=== PATIENT | male | born 1960 | race American Indian/Alaskan Native ===

== ENCOUNTER 2016-10-21 11:20 | Outpatient (CLI) | payer MEDICAID | END 2016-10-21 11:21 | disposition home or self-care (01) | LOC: VAS 11:20 | PROVIDERS: ATTEND Internal Medicine Nephrology | DX: M79.661 Pain in right lower leg (principal) | CPT/HCPCS: 93970 ==

== ENCOUNTER 2017-10-24 01:44 | Emergency (ER) | payer MEDICAID ==
[2017-10-24 02:50] LABS: Basophils # (Auto) 0.1 K/mm3 (0.0-0.1); Basophils % (Auto) 0.6 % (0.0-1.8); Eosinophils # (Auto) 0.5 K/mm3 (0.0-0.4); Eosinophils % (Auto) 6.1 % (0.0-4.3); Hematocrit 38.9 % (35.5-45.6); Hemoglobin 12.7 gm/dl (11.8-15.2); Lymphocytes # (Auto) 1.1 K/mm3 (1.2-5.4); Lymphocytes % (Auto) 12.1 % (13.4-35.0); Mean Corpuscular HGB Conc 33 % (32-34); Mean Corpuscular Hemoglobin 29 pg (28-32); Mean Corpuscular Volume 90 fl (84-94); Monocytes # (Auto) 0.5 K/mm3 (0.0-0.8); Monocytes % (Auto) 5.2 % (0.0-7.3); Platelet Count 134 K/mm3 (140-440); Red Blood Count 4.34 M/mm3 (3.65-5.03); Red Cell Distribution Width 17.2 % (13.2-15.2)
[2017-10-24 03:10] LABS: Calcium 8.8 mg/dL (8.4-10.2)
--- NOTE | 2017-10-24 03:47 | XRay Report ---
FINAL REPORT EXAM: XR CHEST 1V AP HISTORY: Shortness of breath. TECHNIQUE: Two frontal portable radiographs of the chest were obtained. No prior studies are available for comparison. FINDINGS: The heart is mildly enlarged. There is mild prominence of the central pulmonary vasculature. There are bilateral perihilar opacities, with additional patchy infiltrate at the right lung base. These findings may be on the basis of mild pulmonary edema, versus pneumonia. There is no pleural effusion or pneumothorax. No significant osseous abnormalities are identified. IMPRESSION: Mild prominence of the central pulmonary vasculature, with bilateral perihilar and right basilar infiltrates. These findings may be on the basis of mild pulmonary edema versus pneumonia. Clinical correlation is recommended.
[2017-10-24] MEDS ORDERED: LASIX IV ONE (04:04)
[2017-10-24] MEDS ORDERED: NITRO-BID 2% TP ONE (04:05)
[2017-10-24] MEDS ORDERED: NITROSTAT SL ONE (04:05)
--- NOTE | 2017-10-24 04:14 | Emergency Department Report ---
ED General Adult HPI - General Chief complaint: Dyspnea/Respdistress Stated complaint: RICO Time Seen by Provider: 10/24/17 03:44 Source: EMS Mode of arrival: Stretcher Limitations: Other - History of Present Illness Initial comments: History of esrd was 6am hd THIS MORNING SHORT OF BREATH DENIES CHEST PAIN DENIES FEVER DENIES OTHER COMPLAINTS DENIES ANY CALF PAIN OR SWELLING IS REFERRED EVALUATION OF PULMONARY EDEMA, pt is in need of his hd today, no other c/o, no fever -: Gradual, This morning, unknown Associated Symptoms: denies other symptoms, shortness of breath. denies: confusion, chest pain, cough, diaphoresis, fever/chills, headaches, loss of appetite, malaise, nausea/vomiting, rash, seizure, syncope, weakness - Related Data Previous Rx's Medication Instructions Recorded Last Taken Type B Complex 11/Folic/C/Biot/Zinc 1 each PO DAILY #30 tablet 12/24/16 Unknown Rx [Dialyvite with Zinc Tablet] Carvedilol [Coreg] 3.125 mg PO BID #60 tablet 12/24/16 Unknown Rx Losartan [Cozaar] 50 mg PO QDAY #30 tablet 12/24/16 Unknown Rx Pantoprazole [Protonix] 40 mg PO BID #60 tablet 12/24/16 Unknown Rx Allergies Allergy/AdvReac Type Severity Reaction Status Date / Time No Known Allergies Allergy Verified 09/09/13 08:50 ED Review of Systems ROS: Stated complaint: RICO Other details as noted in HPI Comment: All other systems reviewed and negative Constitutional: denies: diaphoresis, fever, malaise Eyes: denies: eye discharge, vision change ENT: denies: dental pain, hearing loss, epistaxis Respiratory: shortness of breath, SOB with exertion, SOB at rest. denies: stridor Cardiovascular: denies: chest pain, palpitations, dyspnea on exertion, orthopnea , syncope, paroxysmal nocturnal dyspnea Gastrointestinal: denies: abdominal pain, nausea, vomiting, diarrhea, constipation, hematemesis, melena, hematochezia Musculoskeletal: denies: joint swelling, arthralgia Neurological: denies: numbness, paresthesias, confusion ED Past Medical Hx - Past Medical History Hx Hypertension: Yes Hx Heart Attack/AMI: No Hx Congestive Heart Failure: No Hx Diabetes: No Hx Renal Disease: Yes (dialysis) Hx Asthma: No Hx COPD: No - Surgical History Hx Coronary Stent: Yes - Social History Smoking Status: Unknown if ever smoked - Medications Home Medications: Home Medications Medication Instructions Recorded Confirmed Last Taken Type B Complex 11/Folic/C/Biot/Zinc 1 each PO DAILY #30 tablet 12/24/16 Unknown Rx [Dialyvite with Zinc Tablet] Carvedilol [Coreg] 3.125 mg PO BID #60 tablet 12/24/16 Unknown Rx Losartan [Cozaar] 50 mg PO QDAY #30 tablet 12/24/16 Unknown Rx Pantoprazole [Protonix] 40 mg PO BID #60 tablet 12/24/16 Unknown Rx ED Physical Exam - General Limitations: Other General appearance: alert, in no apparent distress, anxious - Head Head exam: Present: atraumatic, normocephalic - Eye Eye exam: Present: normal appearance, PERRL, EOMI - ENT ENT exam: Present: normal exam, normal orophraynx - Neck Neck exam: Present: normal inspection. Absent: tenderness, meningismus - Respiratory Respiratory exam: Present: wheezes, rales, rhonchi. Absent: decreased breath sounds - Cardiovascular Cardiovascular Exam: Present: regular rate, normal rhythm - GI/Abdominal GI/Abdominal exam: Present: soft. Absent: tenderness, guarding, rebound, rigid , mass, pulsatile mass - Extremities Exam Extremities exam: Present: normal capillary refill, pedal edema. Absent: calf tenderness - Neurological Exam Neurological exam: Present: alert, oriented X3, CN II-XII intact. Absent: motor sensory deficit ED Course Vital Signs 10/24/17 10/24/17 10/24/17 01:48 02:00 02:15 Pulse Rate 74 74 68 Respiratory 20 22 22 Rate Blood Pressure 178/111 169/103 O2 Sat by Pulse 100 100 100 Oximetry 10/24/17 10/24/17 10/24/17 02:30 02:45 03:01 Pulse Rate 70 67 67 Respiratory 20 21 Rate Blood Pressure 170/108 159/102 O2 Sat by Pulse 100 100 Oximetry ED Medical Decision Making - Lab Data Result diagrams: 10/24/17 02:43 10/24/17 02:43 - Radiology Data Radiology results: report reviewed - Medical Decision Making Patient given nitroglycerin and Lasix he is stable for transfer [facility] he is stable vs, case was discussed with the on-call for Dr. Reich the renal doctor agrees with management. Patient has no other complaints symptoms seem to be related to an emergent need for dialysis C is therefore transferred to the dialysis center Critical care attestation.: If time is entered above; I have spent that time in minutes in the direct care of this critically ill patient, excluding procedure time. ED Disposition Clinical Impression: ESRD (end stage renal disease) on dialysis, Pulmonary edema Disposition: TO HOME OR SELFCARE Is pt being admited?: No Condition: Stable Instructions: Pulmonary Edema (ED) Additional Instructions: The dialysis unit now call 911 if new alarming symptoms Referrals: KRISTOFER ELLIS MD [Primary Care Provider] - 3-5 Days Time of Disposition: 04:24
[2017-10-24 06:57] VITALS: BP 164/104
== END 2017-10-24 06:57 | disposition home or self-care (01) ==
LOC: ED 01:44
DX: J81.1 Chronic pulmonary edema (principal); I12.0 Hypertensive chronic kidney disease with stage 5 chronic kidney disease or end stage renal disease; N18.6 End stage renal disease; Z99.2 Dependence on renal dialysis
CPT/HCPCS: 36415; 71045; 80048; 85025; 93005; 93010; 96374; 99284; J1940

== ENCOUNTER 2017-12-14 07:57 | Day surgery (SDC) | payer MEDICAID ==
[~2017-12-14 07:57] MED LIST: NACL 0.9% 1000 ML 1,000 ML IV SCH
[2017-12-14] MEDS ORDERED: WATER FOR IRRIG STERILE IR ONE (08:23)
[2017-12-14] MEDS ORDERED: XYLOCAINE MPF 2% ONE (08:30)
[2017-12-14] MEDS ORDERED: DIPRIVAN 10 MG/ML IV ONE (08:41)
--- NOTE | 2017-12-14 08:42 | Anesthesia Day of Surgery ---
Anesthesia Day of Surgery - Day of Surgery Patient Examined: Yes Patient H&P Reviewed: Yes Patient is NPO: Yes
--- NOTE | 2017-12-14 08:42 | Anesthesia Consultation ---
Anesthesia Consult and Med Hx Date of service: 12/14/17 - Airway Anesthetic Teeth Evaluation: Poor ROM Head & Neck: Adequate Mental/Hyoid Distance: Adequate Mallampati Class: Class II Intubation Access Assessment: Probably Good - Pre-Operative Health Status ASA Pre-Surgery Classification: ASA3 Proposed Anesthetic Plan: MAC - Pulmonary Hx Smoking: Yes Hx Asthma: No SOB: Yes COPD: No Hx Pneumonia: No Hx Sleep Apnea: No - Cardiovascular System Hx Hypertension: Yes Hx Coronary Artery Disease: Yes Hx Heart Attack/AMI: No Hx Percutaneous Transluminal Coronary Angioplasty (PTCA): No Hx Peripheral Vascular Disease: Yes - Central Nervous System CVA: Yes (2012, rt leg weakness) Hx Psychiatric Problems: No - Gastrointestinal Hx Ulcer: Yes (GASTRIC ULCER) - Endocrine Hx Renal Disease: Yes Hx End Stage Renal Disease: Yes ([place] ) Hx Hypothyroidism: No - Hematic Hx Anemia: Yes (acute GI bleed) - Other Systems Hx Alcohol Use: No Hx Substance Use: Yes (CIGARETTES/MARIJUANA) Hx Cancer: No
--- NOTE | 2017-12-14 09:07 | Short Stay Summary ---
Short Stay Documentation Date of service: 12/14/17 Narrative H&P: The patient reports for f/u EGD for a history of a gastric ulcer with a massive bleed a year ago. He never had f/u endoscopy. - History Past Medical History: ESRD, hypertension Past Surgical History: Other (AV shunt for dialysis) Social history: no significant social history, no smoking, no alcohol abuse - Allergies and Medications Current Medications: Allergies No Known Allergies Allergy (Verified 09/09/13 08:50) Home Medications Medication Instructions Recorded Confirmed Last Taken Type B Complex 11/Folic/C/Biot/Zinc 1 each PO DAILY #30 tablet 12/24/16 Unknown Rx [Dialyvite with Zinc Tablet] Carvedilol [Coreg] 3.125 mg PO BID #60 tablet 12/24/16 Unknown Rx Losartan [Cozaar] 50 mg PO QDAY #30 tablet 12/24/16 Unknown Rx Pantoprazole [Protonix] 40 mg PO BID #60 tablet 12/24/16 Unknown Rx Aspirin 81 mg PO DAILY 12/14/17 12/14/17 12/14/17 History Megavite Hoskins Years Caplet 1 tab PO DAILY 12/14/17 12/14/17 12/13/17 History Active Medications Sodium Chloride (Nacl 0.9% 1000 Ml) 1,000 mls @ 50 mls/hr IV DIRECT DARIANA Last Admin: 12/14/17 08:40 Dose: 50 mls/hr - Physical exam General appearance: no acute distress, well-nourished Integumentary: no rash, no growths, no abnormal pigmentation HEENT: Atraumatic, PERRLA, EOMI, Mucous membr. moist/pink Lungs: Clear to auscultation, Normal air movement Breasts: deferred Gastrointestinal: normoactive bowel sounds, no tenderness, no distended, no masses, no organomegaly, no hepatomegaly, no splenomegaly, no obese Male Genitourinary: deferred Rectal Exam: deferred Extremities: no ischemia, pulses intact, pulses symmetrical, No edema, Full ROM Neurological: Normal gait, Normal speech, Strength at 5/5 X4 ext, Normal tone, Sensation intact, Cranial nerves 3-12 NL - Brief post op/procedure progress note Date of procedure: 12/14/17 Findings: see dictated report Estimated blood loss: none Pathology: none Condition: stable - Disposition Condition at discharge: Good Disposition: DC-01 TO HOME OR SELFCARE - Discharge Diagnoses (1) Gastric ulcer Status: Acute Short Stay Discharge Plan Follow up with: MARY CARMEN CESPEDES MD [Primary Care Provider] - 7 Days
--- NOTE | 2017-12-14 09:10 | Operative Report ---
Operative Report Operative Report: Date of procedure: 12/14/2017 Procedure: Esophagogastroduodenoscopy Preprocedure diagnosis: History of gastric ulcer with a massive bleed. Follow- up study to exclude malignancy. Post procedure diagnosis: Normal study Endoscopist: Dr. Angeles Anesthesia: Monitored anesthesia care per anesthesia department Medications: Propofol per anesthesia Estimated blood loss: 0 After careful discussion of the nature and purpose of the procedure as well as details the technique risks benefits and alternatives consent was obtained. The patient was placed in the left lateral decubitus position and medicated per anesthesia. The tip of the Tenrox EQ 570 video scope was passed per orum under direct vision into the esophagus and advanced into the stomach and descending duodenum. The descending duodenum the duodenal bulb and pylorus were symmetrical and normal. The scope was withdrawn into the stomach and the stomach then gently insufflated with air. The antrum was normal. The stomach was further insufflated and the scope was then retroflexed and partially withdrawn. The cardia, fundus, and body of the stomach were within normal limits and easily distensible.The scope was then withdrawn in the forward position. The esophagogastric junction was at 40 cm. The esophageal body was normal throughout. The procedure was was well tolerated and the patient was observed in recovery. Impressions: Normal upper digestive tract with healing of the ulcer demonstrated. Plan: Follow-up when necessary. Electronically signed: Antonio Angeles MD
[2017-12-14 09:23] VITALS: BP 162/94
== END 2017-12-14 07:58 | disposition home or self-care (01) ==
LOC: GIO 07:57
PROVIDERS: ATTEND Internal Medicine Gastroenterology
DX: K25.9 Gastric ulcer, unspecified as acute or chronic, without hemorrhage or perforation (principal); I12.0 Hypertensive chronic kidney disease with stage 5 chronic kidney disease or end stage renal disease; N18.6 End stage renal disease; I25.10 Atherosclerotic heart disease of native coronary artery without angina pectoris; I73.9 Peripheral vascular disease, unspecified; I69.944 Monoplegia of lower limb following unspecified cerebrovascular disease affecting left non-dominant side; F17.210 Nicotine dependence, cigarettes, uncomplicated; Z99.2 Dependence on renal dialysis; Z79.82 Long term (current) use of aspirin; Z79.899 Other long term (current) drug therapy
CPT/HCPCS: 43235; J2704; J7030

== ENCOUNTER 2018-07-16 05:03 | Inpatient (IN) | payer MEDICAID ==
[2018-07-16] MEDS ORDERED: LASIX IV ONE (05:27)
[2018-07-16] MEDS ORDERED: DUONEB *Not for PRN Use IH ONE ×2 (05:27→06:48)
--- NOTE | 2018-07-16 05:28 | Emergency Department Report ---
Blank Doc - Documentation Documentation: Patient is a 58-year-old gentleman who is presenting with shortness of breath and chest discomfort. Patient has a history of end-stage renal disease and receives last dialysis yesterday. Patient is not due for dialysis for another day. Patient
[2018-07-16] MEDS ORDERED: LASIX ONE (05:31)
[2018-07-16 05:36] LABS: Basophils % (Auto) 0.4 % (0.0-1.8); Eosinophils # (Auto) 0.6 K/mm3 (0.0-0.4); Eosinophils % (Auto) 6.6 % (0.0-4.3); Hematocrit 35.9 % (35.5-45.6); Hemoglobin 11.6 gm/dl (11.8-15.2); Lymphocytes % (Auto) 9.9 % (13.4-35.0); Mean Corpuscular HGB Conc 32 % (32-34); Mean Corpuscular Volume 94 fl (84-94); Monocytes # (Auto) 0.7 K/mm3 (0.0-0.8); Monocytes % (Auto) 6.9 % (0.0-7.3); Platelet Count 154 K/mm3 (140-440); Red Cell Distribution Width 16.5 % (13.2-15.2)
[2018-07-16 05:51] LABS: Calcium 9.4 mg/dL (8.4-10.2)
--- NOTE | 2018-07-16 05:55 | XRay Report ---
FINAL REPORT PROCEDURE: XR CHEST 1V AP TECHNIQUE: Chest radiograph anteroposterior view. CPT 77567 HISTORY: shortness of breath COMPARISON: 10/24/2017 FINDINGS: Heart: Heart size is slightly enlarged but unchanged. Mediastinum/Vessels: Normal. Lungs/Pleural space: There slight patchy infiltrates in the hilar regions. Is mild infiltrate left lo wer lung. No effusion or pneumothorax. Bony thorax: No acute osseous abnormality. Life support devices: None. IMPRESSION: Mild hilar in left lower lung infiltrates. Mild stable cardiomegaly..
[2018-07-16 06:08] LABS: Chol/HDL Ratio 1.74 %
[2018-07-16] MEDS ORDERED: NITRO-BID 2% TP ONE (06:28)
--- NOTE | 2018-07-16 06:31 | Emergency Department Report ---
ED Shortness of Breath HPI - General Chief Complaint: Chest Pain Stated Complaint: CHEST PAIN/RICO Time Seen by Provider: 07/16/18 05:25 Source: EMS Mode of arrival: Stretcher Limitations: No Limitations - History of Present Illness Initial Comments: 58-year-old man compliant with his dialysis states that he's been short of breath since yesterday. Although the triage note states chest pain the patient cannot describe any chest pain to me. He does seem to have ample [place] language ability. He states he's been short of breath only. He denies hemop tysis. He was found to be hypertensive on arrival. It is likely he has long- standing cardiomyopathy. MD Complaint: shortness of breath, chest pain (triage note states chest pain. However when I asked the patient all he can describe to me his shortness of breath) -: days(s) Known History Of: other (end-stage renal on dialysis) Context: other Associated Symptoms: denies other symptoms - Related Data Home Medications Medication Instructions Recorded Confirmed Last Taken Aspirin 81 mg PO DAILY 12/14/17 12/14/17 12/14/17 Megavite Hoskins Years Caplet 1 tab PO DAILY 12/14/17 12/14/17 12/13/17 Previous Rx's Medication Instructions Recorded Last Taken Type B Complex 11/Folic/C/Biot/Zinc 1 each PO DAILY #30 tablet 12/24/16 Unknown Rx [Dialyvite with Zinc Tablet] Carvedilol [Coreg] 3.125 mg PO BID #60 tablet 12/24/16 12/13/17 Rx Losartan [Cozaar] 50 mg PO QDAY #30 tablet 12/24/16 12/13/17 Rx Pantoprazole [Protonix] 40 mg PO BID #60 tablet 12/24/16 Unknown Rx Allergies Allergy/AdvReac Type Severity Reaction Status Date / Time No Known Allergies Allergy Verified 09/09/13 08:50 ED Review of Systems ROS: Stated complaint: CHEST PAIN/RICO Other details as noted in HPI Constitutional: denies: chills, fever Eyes: denies: eye pain, eye discharge, vision change ENT: denies: ear pain, throat pain Respiratory: shortness of breath. denies: cough, wheezing Cardiovascular: as per HPI. denies: palpitations Endocrine: no symptoms reported Gastrointestinal: denies: abdominal pain, nausea, diarrhea Genitourinary: denies: urgency, dysuria Musculoskeletal: denies: back pain, joint swelling, arthralgia Skin: denies: rash, lesions Neurological: denies: headache, weakness, paresthesias Psychiatric: denies: anxiety, depression Hematological/Lymphatic: denies: easy bleeding, easy bruising ED Past Medical Hx - Past Medical History Hx Hypertension: Yes Hx CVA: Yes Hx Heart Attack/AMI: No Hx Congestive Heart Failure: No Hx Diabetes: No Hx Renal Disease: Yes Hx Asthma: No Hx COPD: No Additional medical history: Dialysis T, TH, SAT - Surgical History Hx Coronary Stent: Yes - Social History Smoking Status: Never Smoker Substance Use Type: None - Medications Home Medications: Home Medications Medication Instructions Recorded Confirmed Last Taken Type B Complex 11/Folic/C/Biot/Zinc 1 each PO DAILY #30 tablet 12/24/16 Unknown Rx [Dialyvite with Zinc Tablet] Carvedilol [Coreg] 3.125 mg PO BID #60 tablet 12/24/16 12/14/17 12/13/17 Rx Losartan [Cozaar] 50 mg PO QDAY #30 tablet 12/24/16 12/14/17 12/13/17 Rx Pantoprazole [Protonix] 40 mg PO BID #60 tablet 12/24/16 Unknown Rx Aspirin 81 mg PO DAILY 12/14/17 12/14/17 12/14/17 History Megavite Hoskins Years Caplet 1 tab PO DAILY 12/14/17 12/14/17 12/13/17 History ED Physical Exam - General Limitations: No Limitations General appearance: alert, in no apparent distress - Head Head exam: Present: atraumatic, normocephalic - Eye Eye exam: Present: normal appearance - ENT ENT exam: Present: mucous membranes moist - Neck Neck exam: Present: normal inspection. Absent: tenderness, meningismus - Respiratory Respiratory exam: Present: wheezes (end expiratory wheeze appreciated), other (normal work of breathing). Absent: respiratory distress, accessory muscle use - Cardiovascular Cardiovascular Exam: Present: regular rate, normal rhythm. Absent: systolic murmur, diastolic murmur, rubs, gallop - GI/Abdominal GI/Abdominal exam: Present: soft, normal bowel sounds - Rectal Rectal exam: Present: deferred - Extremities Exam Extremities exam: Present: normal inspection - Back Exam Back exam: Present: normal inspection - Neurological Exam Neurological exam: Present: alert, oriented X3 - Psychiatric Psychiatric exam: Present: normal affect, normal mood - Skin Skin exam: Present: warm, dry, intact, normal color. Absent: rash ED Course Vital Signs 07/16/18 07/16/18 07/16/18 05:09 05:14 05:15 Temperature 98 F Pulse Rate 82 76 78 Pulse Rate [ Anterior] Respiratory 18 22 23 Rate Respiratory Rate [Anterior] Blood Pressure 187/104 Blood Pressure 187/104 [Right] O2 Sat by Pulse 100 100 Oximetry 07/16/18 07/16/18 07/16/18 05:19 05:30 05:46 Temperature Pulse Rate 74 67 Pulse Rate [ Anterior] Respiratory 18 24 20 Rate Respiratory Rate [Anterior] Blood Pressure 189/104 189/104 Blood Pressure [Right] O2 Sat by Pulse 100 100 87 Oximetry 07/16/18 07/16/18 07/16/18 06:00 06:16 06:30 Temperature Pulse Rate 69 71 69 Pulse Rate [ Anterior] Respiratory 16 20 20 Rate Respiratory Rate [Anterior] Blood Pressure 179/112 179/112 176/113 Blood Pressure [Right] O2 Sat by Pulse 100 93 90 Oximetry 07/16/18 07/16/18 07/16/18 06:37 06:56 07:00 Temperature Pulse Rate 76 73 Pulse Rate [ 90 Anterior] Respiratory 15 Rate Respiratory 17 Rate [Anterior] Blood Pressure 176/113 173/108 Blood Pressure [Right] O2 Sat by Pulse Oximetry 07/16/18 07/16/18 07/16/18 07:30 08:00 08:30 Temperature Pulse Rate 71 70 74 Pulse Rate [ Anterior] Respiratory 19 15 17 Rate Respiratory Rate [Anterior] Blood Pressure 170/104 168/101 178/103 Blood Pressure [Right] O2 Sat by Pulse 99 100 99 Oximetry 07/16/18 07/16/18 09:00 09:30 Temperature Pulse Rate 73 89 Pulse Rate [ Anterior] Respiratory 18 23 Rate Respiratory Rate [Anterior] Blood Pressure 161/93 147/102 Blood Pressure [Right] O2 Sat by Pulse 100 99 Oximetry - Reevaluation(s) Reevaluation #1: Patient's chest x-ray showed a bit of puffiness. There is a significantly elevated BNP. I think this is probably early pulmonary edema. The EKG showed LVH and a QS in V2 and V3 consistent with old anterior infarct. There are no ischemic changes. Patient's blood pressure was treated with Nitropaste. I discussed the case with Dr. Perez who has ordered dialysis. I spoke with the hospitalist service who has admitted the patient. He did improve somewhat with a DuoNeb. He was not in any respiratory distress. 07/16/18 10:35 ED Medical Decision Making - Lab Data Result diagrams: 07/16/18 05:28 07/16/18 05:28 Laboratory Results - last 24 hr 07/16/18 07/16/18 05:28 05:28 WBC 9.6 RBC 3.80 Hgb 11.6 L Hct 35.9 MCV 94 MCH 31 MCHC 32 RDW 16.5 H Plt Count 154 Lymph % (Auto) 9.9 L Stephens % (Auto) 6.9 Eos % (Auto) 6.6 H Baso % (Auto) 0.4 Lymph # 1.0 L Stephens # 0.7 Eos # 0.6 H Baso # 0.0 Seg Neutrophils % 76.2 H Seg Neutrophils # 7.3 Sodium 144 Potassium 4.9 Chloride 103.7 Carbon Dioxide 25 Anion Gap 20 BUN 43 H Creatinine 11.4 H Estimated GFR 6 BUN/Creatinine Ratio 4 Glucose 117 H Calcium 9.4 Troponin T 0.077 H Triglycerides 40 Cholesterol 108 LDL Cholesterol Direct 42 L HDL Cholesterol 62 H Cholesterol/HDL Ratio 1.74 Laboratory Results - last 24 hr 07/16/18 07/16/18 07/16/18 05:28 05:28 06:40 WBC 9.6 RBC 3.80 Hgb 11.6 L Hct 35.9 MCV 94 MCH 31 MCHC 32 RDW 16.5 H Plt Count 154 Lymph % (Auto) 9.9 L Stephens % (Auto) 6.9 Eos % (Auto) 6.6 H Baso % (Auto) 0.4 Lymph # 1.0 L Stephens # 0.7 Eos # 0.6 H Baso # 0.0 Seg Neutrophils % 76.2 H Seg Neutrophils # 7.3 PT 14.3 INR 1.07 APTT 30.4 Sodium 144 Potassium 4.9 Chloride 103.7 Carbon Dioxide 25 Anion Gap 20 BUN 43 H Creatinine 11.4 H Estimated GFR 6 BUN/Creatinine Ratio 4 Glucose 117 H Lactic Acid Calcium 9.4 Phosphorus Total Bilirubin AST ALT Alkaline Phosphatase Total Creatine Kinase CK-MB (CK-2) CK-MB (CK-2) Rel Index Troponin T 0.077 H Total Protein Albumin Albumin/Globulin Ratio Triglycerides 40 Cholesterol 108 LDL Cholesterol Direct 42 L HDL Cholesterol 62 H Cholesterol/HDL Ratio 1.74 07/16/18 07/16/18 07/16/18 06:40 06:40 06:40 WBC RBC Hgb Hct MCV MCH MCHC RDW Plt Count Lymph % (Auto) Stephens % (Auto) Eos % (Auto) Baso % (Auto) Lymph # Stephens # Eos # Baso # Seg Neutrophils % Seg Neutrophils # PT INR APTT Sodium Potassium Chloride Carbon Dioxide Anion Gap BUN Creatinine Estimated GFR BUN/Creatinine Ratio Glucose Lactic Acid 1.30 Calcium Phosphorus 5.80 H Total Bilirubin 0.20 AST 101 H ALT 92 H Alkaline Phosphatase 95 Total Creatine Kinase 117 CK-MB (CK-2) 3.7 CK-MB (CK-2) Rel Index 3.1 Troponin T Total Protein 7.0 Albumin 4.0 Albumin/Globulin Ratio 1.3 Triglycerides Cholesterol LDL Cholesterol Direct HDL Cholesterol Cholesterol/HDL Ratio - EKG Data -: EKG Interpreted by Al EKG shows normal: sinus rhythm - EKG Data Interpretation: LVH, other (probable old anterior zone) - Radiology Data Radiology results: report reviewed Critical care attestation.: If time is entered above; I have spent that time in minutes in the direct care of this critically ill patient, excluding procedure time. ED Disposition Clinical Impression: Accelerated hypertension, End-stage renal disease needing dialysis CHF (congestive heart failure) Qualifiers: Heart failure type: biventricular Qualified Code(s): I50.82 - Biventricular heart failure Disposition: OP ADMIT IP TO THIS HOSP Is pt being admited?: Yes Does the pt Need Aspirin: Yes Condition: Stable Time of Disposition: 10:38
[2018-07-16 07:05] LABS: INR 1.07 (0.87-1.13)
[2018-07-16 07:06] LABS: Partial Thromboplastin Time 30.4 Sec. (24.2-36.6)
[2018-07-16 07:21] LABS: Creatine Kinase MB 3.7 ng/mL (0.0-4.0)
[2018-07-16 08:20] LABS: Bilirubin,Direct 0.2 mg/dL (0-0.2)
[2018-07-16] MEDS ORDERED: NACL 0.9% 100 ML IV PRN (08:23)
--- NOTE | 2018-07-16 08:26 | Consultation ---
History of Present Illness - Reason for Consult Consult date: 07/16/18 end stage renal disease Requesting physician: ROBBIE DIAL - History of Present Illness 58-year-old man compliant with his dialysis states that he's been short of breath since yesterday. Although the triage note states chest pain the patient cannot describe any chest pain to me. He does seem to have ample Montenegrin language ability. He states he's been short of breath only. He denies hemopty sis. He was found to be hypertensive on arrival. It is likely he has long- standing cardiomyopathy. he undergoes hemodialysis at [facility] on TTS schedule. patient states that he did have his dialysis treatment on Monday Past History Past Medical History: dialysis, hypertension, stroke Past Surgical History: Other (AV fistula creation) Social history: no significant social history Family history: no significant family history Medications and Allergies Allergies Allergy/AdvReac Type Severity Reaction Status Date / Time No Known Allergies Allergy Verified 09/09/13 08:50 Home Medications Medication Instructions Recorded Confirmed Last Taken Type B Complex 11/Folic/C/Biot/Zinc 1 each PO DAILY #30 tablet 12/24/16 Unknown Rx [Dialyvite with Zinc Tablet] Carvedilol [Coreg] 3.125 mg PO BID #60 tablet 12/24/16 12/14/17 12/13/17 Rx Losartan [Cozaar] 50 mg PO QDAY #30 tablet 12/24/16 12/14/17 12/13/17 Rx Pantoprazole [Protonix] 40 mg PO BID #60 tablet 12/24/16 Unknown Rx Aspirin 81 mg PO DAILY 12/14/17 12/14/17 12/14/17 History Megavite Hoskins Years Caplet 1 tab PO DAILY 12/14/17 12/14/17 12/13/17 History Active Meds: Active Medications Sodium Chloride (Nacl 0.9%) 100 mls @ 999 mls/hr IV RAMON PRN PRN Reason: Hypotension Review of Systems All systems: negative (as noted above) Exam - Vital Signs Vital signs: Vital Signs Temp Pulse Resp BP Pulse Ox 98 F 82 18 187/104 100 07/16/18 05:09 07/16/18 05:09 07/16/18 05:09 07/16/18 05:09 07/16/18 05:09 - General Appearance General appearance: well-developed, well-nourished, appears stated age EENT: PERRL, mucous membranes moist Neck: Present: neck supple, trachea midline. Absent: JVD/HJR, Masses Respiratory: Rales (bibasal crackles) Heart: regular, normal heart rate Gastrointestinal: Present: normal, normoactive bowel sounds Integumentary: other (AV fistula. Good bruit and thril) Results - Lab Results 07/16/18 05:28 07/16/18 05:28 Most recent lab results Calcium 9.4 mg/dL (8.4-10.2) 07/16/18 05:28 Phosphorus 5.80 mg/dL (2.5-4.5) H 07/16/18 06:40 Assessment and Plan impression * End-stage renal disease on maintenance hemodialysis * Shortness of breath * Hypertension * History of CVA * Anemia Recommendations * Patient clinically does appear to be volume overloaded * Chest x-ray shows hilar infiltrate * Schedule patient for hemodialysis for today an attempt fluid removal * Binders with meals * Procrit per protocol * No IV, BP or venipuncture in his access arm * Avoid nephrotoxins * Adjust diet and meds for ESRD state * Thank you very much for the consultation. Shall follow along with you
--- NOTE | 2018-07-16 09:57 | History and Physical Report ---
History of Present Illness Date of examination: 07/16/18 Date of admission: 07/16/18 Chief complaint: SOB History of present illness: 58-year-old man with h/o ESRD compliant with his dialysis presented to ER with c/o short of breath since yesterday. patient denies any chest pain and states he was not compliant with fluid restriction. In the Er he noted to be volume overloaded and called for admission for emergent HD, renal consulted. Past History Past Medical History: anemia, ESRD, hypertension, GI bleed with PUD Past Surgical History: Other (rt/ AV fistula) Social history: smoking Family history: hypertension Review of Systems Constitutional: denies: chills, fever Eyes: denies: eye pain, eye discharge, vision change ENT: denies: ear pain, throat pain Respiratory: shortness of breath. denies: cough, wheezing Cardiovascular: denies chest pain. denies: palpitations Endocrine: no symptoms reported Gastrointestinal: denies: abdominal pain, nausea, diarrhea Genitourinary: denies: urgency, dysuria Musculoskeletal: denies: back pain, joint swelling, arthralgia Skin: denies: rash, lesions Neurological: denies: headache, weakness, paresthesias Psychiatric: denies: anxiety, depression Hematological/Lymphatic: denies: easy bleeding, easy bruising Medications and Allergies Allergies Allergy/AdvReac Type Severity Reaction Status Date / Time No Known Allergies Allergy Verified 09/09/13 08:50 Home Medications Medication Instructions Recorded Confirmed Last Taken Type B Complex 11/Folic/C/Biot/Zinc 1 each PO DAILY #30 tablet 12/24/16 Unknown Rx [Dialyvite with Zinc Tablet] Carvedilol [Coreg] 3.125 mg PO BID #60 tablet 12/24/16 12/14/17 12/13/17 Rx Losartan [Cozaar] 50 mg PO QDAY #30 tablet 12/24/16 12/14/17 12/13/17 Rx Pantoprazole [Protonix] 40 mg PO BID #60 tablet 12/24/16 Unknown Rx Aspirin 81 mg PO DAILY 12/14/17 12/14/17 12/14/17 History Megavite Hoskins Years Caplet 1 tab PO DAILY 12/14/17 12/14/17 12/13/17 History Active Meds: Active Medications Sodium Chloride (Nacl 0.9%) 100 mls @ 999 mls/hr IV RAMON PRN PRN Reason: Hypotension Pantoprazole Sodium (Protonix) 40 mg PO BID DARIANA Exam - Constitutional Vitals: Temp Pulse Resp BP Pulse Ox 98 F 89 23 147/102 99 07/16/18 05:09 07/16/18 09:30 07/16/18 09:30 07/16/18 09:30 07/16/18 09:30 General appearance: Present: no acute distress, well-nourished - EENT Eyes: Present: PERRL ENT: hearing intact, clear oral mucosa - Neck Neck: Present: supple, normal ROM - Respiratory Respiratory effort: labored Respiratory: bilateral: rales - Cardiovascular Heart Sounds: Present: S1 & S2. Absent: rub, click - Extremities Extremities: pulses symmetrical, No edema Peripheral Pulses: within normal limits - Abdominal General gastrointestinal: Present: soft, non-tender, non-distended, normal bowel sounds - Integumentary Integumentary: Present: clear, warm, dry - Musculoskeletal Musculoskeletal: gait normal, strength equal bilaterally - Psychiatric Psychiatric: appropriate mood/affect, intact judgment & insight - Neurologic Neurologic: CNII-XII intact, moves all extremities Results - Labs CBC & Chem 7: 07/18/18 05:41 07/18/18 05:41 Labs: Abnormal lab results 07/16/18 07/16/18 07/16/18 Range/Units 05:28 05:28 06:40 Hgb 11.6 L (11.8-15.2) gm/dl RDW 16.5 H (13.2-15.2) % Lymph % (Auto) 9.9 L (13.4-35.0) % Eos % (Auto) 6.6 H (0.0-4.3) % Lymph # 1.0 L (1.2-5.4) K/mm3 Eos # 0.6 H (0.0-0.4) K/mm3 Seg Neutrophils % 76.2 H (40.0-70.0) % BUN 43 H (9-20) mg/dL Creatinine 11.4 H (0.8-1.5) mg/dL Glucose 117 H (75-100) mg/dL Phosphorus (2.5-4.5) mg/dL AST 101 H (5-40) units/L ALT 92 H (7-56) units/L Troponin T 0.077 H (0.00-0.029) ng/mL NT-Pro-B Natriuret Pep 47749 H (0-900) pg/mL LDL Cholesterol Direct 42 L (50-130) mg/dL HDL Cholesterol 62 H (40-59) mg/dL 07/16/18 07/16/18 Range/Units 06:40 08:01 Hgb (11.8-15.2) gm/dl RDW (13.2-15.2) % Lymph % (Auto) (13.4-35.0) % Eos % (Auto) (0.0-4.3) % Lymph # (1.2-5.4) K/mm3 Eos # (0.0-0.4) K/mm3 Seg Neutrophils % (40.0-70.0) % BUN (9-20) mg/dL Creatinine (0.8-1.5) mg/dL Glucose (75-100) mg/dL Phosphorus 5.80 H (2.5-4.5) mg/dL AST (5-40) units/L ALT (7-56) units/L Troponin T 0.061 H D (0.00-0.029) ng/mL NT-Pro-B Natriuret Pep (0-900) pg/mL LDL Cholesterol Direct (50-130) mg/dL HDL Cholesterol (40-59) mg/dL Assessment and Plan ESRD with Fluid overload Respiratory distress due to fluid overload HTN, accelerated h/o CVA Elevated troponin, likley from ESRD - admit to medicine - renal consult for emergent HD - resume home meds, obtain 2d echo - DVT Px, supportive care CXR: Mild hilar in left lower lung infiltrates. Mild stable cardiomegaly..
[2018-07-16] MEDS ORDERED: ASPIRIN PO ONE (10:43)
[2018-07-16] MEDS: PROTONIX PO SCH ×2 (11:00→21:37)
[2018-07-16] MEDS ORDERED: NACL 0.9 (PRIMING MACHINE ONLY DIALYSIS) MC ONE (13:37)
[2018-07-16] MEDS ORDERED: ULTRAM PO PRN (21:12)
[2018-07-17] MEDS ORDERED: APRESOLINE IV PRN (07:19)
[2018-07-17] MEDS ORDERED: REGLAN PO PRN (07:19)
[2018-07-17] MEDS ORDERED: TYLENOL PO PRN (07:19)
--- NOTE | 2018-07-17 09:19 | Progress Note ---
Assessment and Plan Impression * End-stage renal disease on maintenance hemodialysis * Shortness of breath * Hypertension * History of CVA * Anemia Recommendations * HD q tthSAT and prn * UF as tolerated with HD * Patient clinically does appear to be volume overloaded * Chest x-ray shows hilar infiltrate * Binders with meals * Procrit per protocol * No IV, BP or venipuncture in his access arm * Avoid nephrotoxins * Adjust diet and meds for ESRD state Subjective Date of service: 07/17/18 Principal diagnosis: esrd Interval history: resting well in bed today Objective - Exam Narrative Exam: General appearance: well-developed, well-nourished, appears stated age EENT: PERRL, mucous membranes moist Neck: Present: neck supple, trachea midline. Absent: JVD/HJR, Masses Respiratory: Rales (bibasal crackles) Heart: regular, normal heart rate Gastrointestinal: Present: normal, normoactive bowel sounds Integumentary: other (AV fistula. Good bruit and thril) - Vital Signs Vital signs: Vital Signs - 12hr 07/16/18 07/17/18 23:53 05:43 Temperature 98.4 F 96.8 F L Pulse Rate 73 73 Respiratory 20 20 Rate Blood Pressure 143/89 161/96 O2 Sat by Pulse 97 98 Oximetry - Lab 07/16/18 05:28 07/16/18 05:28 Most recent lab results Calcium 9.4 mg/dL (8.4-10.2) 07/16/18 05:28 Phosphorus 5.80 mg/dL (2.5-4.5) H 07/16/18 06:40 Medications & Allergies - Medications Allergies/Adverse Reactions: Allergies No Known Allergies Allergy (Verified 09/09/13 08:50) Home Medications: Home Medications Medication Instructions Recorded Confirmed Last Taken Type B Complex 11/Folic/C/Biot/Zinc 1 each PO DAILY #30 tablet 12/24/16 Unknown Rx [Dialyvite with Zinc Tablet] Carvedilol [Coreg] 3.125 mg PO BID #60 tablet 12/24/16 12/14/17 12/13/17 Rx Losartan [Cozaar] 50 mg PO QDAY #30 tablet 12/24/16 12/14/17 12/13/17 Rx Pantoprazole [Protonix] 40 mg PO BID #60 tablet 06/17/17 Unknown Rx Aspirin 81 mg PO DAILY 12/14/17 12/14/17 12/14/17 History Megavite Hoskins Years Caplet 1 tab PO DAILY 12/14/17 12/14/17 12/13/17 History Active Medications: Generic Name Dose Route Start Last Admin Trade Name Freq PRN Reason Stop Dose Admin Acetaminophen 650 mg 07/17/18 07:19 Tylenol PO Q4H PRN Pain MILD(1-3)/Fever >100.5/GALICIA Atorvastatin Calcium 40 mg 07/17/18 22:00 Lipitor PO QHS [facility] Docusate Sodium 100 mg 07/17/18 10:00 Colace PO BID [facility] Heparin Sodium (Porcine) 5,000 unit 07/17/18 10:00 Heparin SUB-Q Q12HR [facility] Hydralazine HCl 5 mg 07/17/18 07:19 Apresoline IV Q30MIN PRN Hypertension Sodium Chloride 100 mls @ 999 mls/hr 07/16/18 08:23 Nacl 0.9% IV RAMON PRN Hypotension Metoclopramide HCl 5 mg 07/17/18 07:19 Reglan PO Q6H PRN Nausea And Vomiting Pantoprazole Sodium 40 mg 07/16/18 10:00 07/16/18 21:37 Protonix PO 40 mg BID DARIANA Administration Tramadol HCl 25 mg 07/16/18 21:12 07/16/18 21:43 Ultram PO 25 mg Q6H PRN Administration Pain, Moderate (4-6)
[2018-07-17] MEDS: HEPARIN SUB-Q SCH ×2 (10:00→21:35)
[2018-07-17] MEDS: COLACE PO SCH ×2 (10:00→21:35)
[2018-07-17] MEDS: PROTONIX PO SCH ×2 (10:00→21:34)
[2018-07-17] MEDS ORDERED: NACL 0.9 (PRIMING MACHINE ONLY DIALYSIS) MC ONE (13:05)
--- NOTE | 2018-07-17 15:48 | Progress Note ---
Assessment and Plan ESRD with Fluid overload Respiratory distress due to fluid overload - likely from noncompliant with fluid restriction and CHF - s/p emergent HD yesterday and also plannned for today HTN, accelerated - resumed home meds, stable h/o CVA, cont asp. statin Elevated troponin, likley from ESRD and underlying CHF -follow 2d echo result CHF exacerbation, POA - fluid overload should be controlled by HD - previous Echo showed Ef 30-35%, follow repeat 2d echo CXR: Mild hilar in left lower lung infiltrates. Mild stable cardiomegaly.. Subjective Date of service: 07/17/18 Principal diagnosis: esrd Interval history: patient seen and examined planned for another HD today denies chest pain, breathing improved Objective - Exam Narrative Exam: General appearance: Present: no acute distress, well-nourished - EENT Eyes: Present: PERRL ENT: hearing intact, clear oral mucosa - Neck Neck: Present: supple, normal ROM - Respiratory Respiratory effort: normal Respiratory: bilateral: few rales - Cardiovascular Heart Sounds: Present: S1 & S2. Absent: rub, click - Extremities Extremities: pulses symmetrical, No edema Peripheral Pulses: within normal limits - Abdominal General gastrointestinal: Present: soft, non-tender, non-distended, normal bowel sounds - Integumentary Integumentary: Present: clear, warm, dry - Musculoskeletal Musculoskeletal: gait normal, strength equal bilaterally - Psychiatric Psychiatric: appropriate mood/affect, intact judgment & insight - Neurologic Neurologic: CNII-XII intact, moves all extremities - Constitutional Vitals: Vital Signs - 12hr 07/17/18 07/17/18 07/17/18 05:43 09:50 10:10 Temperature 96.8 F L 97.5 F L Pulse Rate 73 72 72 Respiratory 20 16 Rate Blood Pressure 161/96 150/96 150/96 O2 Sat by Pulse 98 Oximetry 07/17/18 07/17/18 07/17/18 10:15 10:30 10:45 Temperature Pulse Rate 66 66 64 Respiratory Rate Blood Pressure 151/98 153/93 142/86 O2 Sat by Pulse Oximetry 07/17/18 07/17/18 07/17/18 11:00 11:15 11:30 Temperature Pulse Rate 63 64 65 Respiratory Rate Blood Pressure 132/81 143/89 150/87 O2 Sat by Pulse Oximetry 07/17/18 07/17/18 07/17/18 11:45 12:00 12:15 Temperature Pulse Rate 65 67 67 Respiratory Rate Blood Pressure 138/88 136/85 136/85 O2 Sat by Pulse Oximetry 07/17/18 07/17/18 07/17/18 12:30 12:45 13:00 Temperature Pulse Rate 64 68 64 Respiratory Rate Blood Pressure 117/78 119/78 129/79 O2 Sat by Pulse Oximetry 07/17/18 07/17/18 07/17/18 13:15 13:30 13:40 Temperature Pulse Rate 61 60 69 Respiratory Rate Blood Pressure 137/84 135/80 130/79 O2 Sat by Pulse Oximetry 07/17/18 14:08 Temperature 98.2 F Pulse Rate 69 Respiratory 16 Rate Blood Pressure 130/79 O2 Sat by Pulse Oximetry - Labs CBC & Chem 7: 07/18/18 05:41 07/18/18 05:41
[2018-07-17] MEDS ORDERED: LEVAQUIN PO SCH (16:00)
[2018-07-18 06:34] LABS: Basophils % (Auto) 0.6 % (0.0-1.8); Eosinophils # (Auto) 0.4 K/mm3 (0.0-0.4); Eosinophils % (Auto) 8.7 % (0.0-4.3); Hematocrit 34.5 % (35.5-45.6); Hemoglobin 11.4 gm/dl (11.8-15.2); Lymphocytes # (Auto) 0.9 K/mm3 (1.2-5.4); Mean Corpuscular HGB Conc 33 % (32-34); Mean Corpuscular Volume 93 fl (84-94); Monocytes # (Auto) 0.6 K/mm3 (0.0-0.8); Monocytes % (Auto) 12.5 % (0.0-7.3); Platelet Count 141 K/mm3 (140-440); Red Blood Count 3.71 M/mm3 (3.65-5.03); Red Cell Distribution Width 16.5 % (13.2-15.2)
[2018-07-18 06:51] LABS: Calcium 9.5 mg/dL (8.4-10.2)
--- NOTE | 2018-07-18 09:02 | Progress Note ---
Assessment and Plan Impression * End-stage renal disease on maintenance hemodialysis * Shortness of breath * Hypertension * History of CVA * Anemia Recommendations * HD q tthSAT and prn * UF as tolerated with HD * Chest x-ray shows hilar infiltrate * Binders with meals * Procrit per protocol * No IV, BP or venipuncture in his access arm * Avoid nephrotoxins * Adjust diet and meds for ESRD state * ok to dc home from renal standpoint Subjective Date of service: 07/18/18 Principal diagnosis: esrd Interval history: resting well in bed today Objective - Exam Narrative Exam: General appearance: well-developed, well-nourished, appears stated age EENT: PERRL, mucous membranes moist Neck: Present: neck supple, trachea midline. Absent: JVD/HJR, Masses Respiratory: Rales (bibasal crackles) Heart: regular, normal heart rate Gastrointestinal: Present: normal, normoactive bowel sounds Integumentary: other (AV fistula. Good bruit and thril) - Vital Signs Vital signs: Vital Signs - 12hr 07/18/18 07/18/18 07/18/18 00:24 01:11 03:15 Temperature 98.5 F Pulse Rate 75 75 81 Respiratory 20 Rate Blood Pressure 161/111 161/111 Blood Pressure 150/98 [Right] O2 Sat by Pulse 95 Oximetry 07/18/18 06:07 Temperature 98.2 F Pulse Rate 79 Respiratory 20 Rate Blood Pressure 146/90 Blood Pressure [Right] O2 Sat by Pulse 96 Oximetry - Lab 07/18/18 05:41 07/18/18 05:41 Most recent lab results Calcium 9.5 mg/dL (8.4-10.2) 07/18/18 05:41 Phosphorus 5.80 mg/dL (2.5-4.5) H 07/16/18 06:40 Medications & Allergies - Medications Allergies/Adverse Reactions: Allergies No Known Allergies Allergy (Verified 09/09/13 08:50) Home Medications: Home Medications Medication Instructions Recorded Confirmed Last Taken Type B Complex 11/Folic/C/Biot/Zinc 1 each PO DAILY #30 tablet 12/24/16 Unknown Rx [Dialyvite with Zinc Tablet] Carvedilol [Coreg] 3.125 mg PO BID #60 tablet 12/24/16 12/14/17 12/13/17 Rx Losartan [Cozaar] 50 mg PO QDAY #30 tablet 12/24/16 12/14/17 12/13/17 Rx Pantoprazole [Protonix] 40 mg PO BID #60 tablet 12/24/16 Unknown Rx Aspirin 81 mg PO DAILY 12/14/17 12/14/17 12/14/17 History Megavite Hoskins Years Caplet 1 tab PO DAILY 12/14/17 12/14/17 12/13/17 History Active Medications: Generic Name Dose Route Start Last Admin Trade Name Freq PRN Reason Stop Dose Admin Acetaminophen 650 mg 07/17/18 07:19 Tylenol PO Q4H PRN Pain MILD(1-3)/Fever >100.5/GALICIA Atorvastatin Calcium 40 mg 07/17/18 22:00 07/17/18 21:34 Lipitor PO 40 mg QHS DARIANA Administration Docusate Sodium 100 mg 07/17/18 10:00 07/17/18 21:35 Colace PO 100 mg BID DARIANA Administration Heparin Sodium (Porcine) 5,000 unit 07/17/18 10:00 07/17/18 21:35 Heparin SUB-Q 5,000 unit Q12HR DARIANA Administration Hydralazine HCl 5 mg 07/17/18 07:19 07/18/18 01:11 Apresoline IV 5 mg Q30MIN PRN Administration Hypertension Sodium Chloride 100 mls @ 999 mls/hr 07/16/18 08:23 Nacl 0.9% IV RAMON PRN Hypotension Levofloxacin 250 mg 07/17/18 16:00 07/17/18 18:23 Levaquin PO 250 mg Q48H DARIANA Administration Metoclopramide HCl 5 mg 07/17/18 07:19 Reglan PO Q6H PRN Nausea And Vomiting Pantoprazole Sodium 40 mg 07/16/18 10:00 07/17/18 21:34 Protonix PO 40 mg BID DARIANA Administration Tramadol HCl 25 mg 07/16/18 21:12 07/16/18 21:43 Ultram PO 25 mg Q6H PRN Administration Pain, Moderate (4-6)
[2018-07-18] MEDS: COLACE PO SCH (10:56)
[2018-07-18] MEDS: HEPARIN SUB-Q SCH (10:56)
[2018-07-18] MEDS: PROTONIX PO SCH (10:56)
[2018-07-18 13:45] VITALS: BP 163/96
--- NOTE | 2018-07-18 15:05 | Discharge Summary ---
Providers - Providers Date of Admission: 07/16/18 09:10 Date of discharge: 07/18/18 Attending physician: MAITE PALM Primary care physician: ANIMAL IMPERSONATOR Hospitalization Condition: Stable Pertinent studies: cxr: CXR: Mild hilar in left lower lung infiltrates. Mild stable cardiomegaly.. 2d echo: 25% Hospital course: 58-year-old man with h/o ESRD compliant with his dialysis presented to ER with c/o short of breath and stated that he was not compliant with fluid restriction. In the ER he noted to be volume overloaded and called for admission for emergent HD. Renal consulted in the ER for further evaluation and management. Discharge diagnosis and management: ESRD with Fluid overload Respiratory distress due to fluid overload - likely from noncompliant with fluid restriction and CHF - s/p emergent HD x2 LLL PNA, treated with levaquin HTN, accelerated - resumed home meds, stable h/o CVA, cont asp. statin Elevated troponin, likely from ESRD and underlying CHF - 2d echo showed EF ~25% CHF exacerbation, POA - fluid overload controlled by HD Disposition: TO HOME OR SELFCARE Time spent for discharge: 34 minutes Core Measure Documentation - Palliative Care Palliative Care/ Comfort Measures: Not Applicable - Core Measures Any of the following diagnoses?: heart failure - Heart Failure Discharge Requirements GINA/ARB for LVSD if EF <40%: Yes Beta man at discharge: Yes Exam - Physical Exam Narrative exam: General appearance: Present: no acute distress, well-nourished - EENT Eyes: Present: PERRL ENT: hearing intact, clear oral mucosa - Neck Neck: Present: supple, normal ROM - Respiratory Respiratory effort: normal Respiratory: bilateral: few rales - Cardiovascular Heart Sounds: Present: S1 & S2. Absent: rub, click - Extremities Extremities: pulses symmetrical, No edema Peripheral Pulses: within normal limits - Abdominal General gastrointestinal: Present: soft, non-tender, non-distended, normal bowel sounds - Integumentary Integumentary: Present: clear, warm, dry - Musculoskeletal Musculoskeletal: gait normal, strength equal bilaterally - Psychiatric Psychiatric: appropriate mood/affect, intact judgment & insight - Neurologic Neurologic: CNII-XII intact, moves all extremities - Constitutional Vitals: Temp Pulse Resp BP Pulse Ox 98.2 F 75 20 163/96 95 07/18/18 11:44 07/18/18 11:44 07/18/18 11:44 07/18/18 11:44 07/18/18 11:44 Plan Activity: advance as tolerated Weight Bearing Status: Weight Bear as Tolerated Diet: renal Special Instructions: restrict fluid intake to (1.2 L), record daily weights Follow up with: PRIMARY CAREMD [Primary Care Provider] - 3-5 Days PARAMJIT DANIELS MD [Staff Physician] - 7 Days Prescriptions: AtorvaSTATin [Lipitor] 40 mg PO QHS #30 tablet
[2018-07-18] MEDS ORDERED: HALFPRIN EC PO SCH (16:00)
--- NOTE | 2018-07-19 13:57 | Query- Heart Failure ---
Deasemaj Gilbert Date:___07/19/18 Product Development Actuary/CDS:___marily/shirley Phone#:____[phone] Exercise your independent professional judgment when responding to query. Questions asked do not imply a particular answer is desired or expected. We greatly appreciate your clarification on this issue. Clinical Documentation States: 58-year-old man compliant with his dialysis states that he's been short of breath since yesterday discharge diagnosis and management: ESRD with Fluid overload Respiratory distress due to fluid overload - likely from noncompliant with fluid restriction and CHF - s/p emergent HD yesterday and also plannned for today LLL PNA, treated with levaquin HTN, accelerated - resumed home meds, stable h/o CVA, cont asp. statin Elevated troponin, likley from ESRD and underlying CHF -follow 2d echo result CHF exacerbation, POA - fluid overload should be controlled by HD - previous Echo showed Ef 30-35%, follow repeat 2d echo Clinical Findings Show: BNP : 96024 ECHO shows left ventricular systolic function is severely decreased. The EF is 25 - 30% If possible, Please Clarify if you mean: Acuity: [ ] Acute [ x] Acute on Chronic [ ] Chronic Type: [ x] Systolic Heart Failure [ ] Diastolic Heart Failure [ ] Combined Heart Failure [ ] Other: Present on Admission: [x ] Yes (Y) [x ] Clinically undeterminable (W) [ ] No (N) Please also document response in your Progress Notes and/or Discharge Summary and indicate if the condition was present on admission. ALEJANDRAD
== END 2018-07-18 17:26 | disposition home or self-care (01) | DRG 291 ==
LOC: ED 05:03 → 3A 09:10
PROVIDERS: ADMIT Internal Medicine; ATTEND Internal Medicine
PROC: 5A1D70Z Performance of Urinary Filtration, Intermittent, Less than 6 Hours Per Day (ICD-10-PCS; principal; 2018-07-16)
PROC: 5A1D70Z Performance of Urinary Filtration, Intermittent, Less than 6 Hours Per Day (ICD-10-PCS; 2018-07-17)
DX: I13.2 Hypertensive heart and chronic kidney disease with heart failure and with stage 5 chronic kidney disease, or end stage renal disease (principal); I50.23 Acute on chronic systolic (congestive) heart failure; N18.6 End stage renal disease; J18.1 Lobar pneumonia, unspecified organism; I50.9 Heart failure, unspecified; E87.70 Fluid overload, unspecified; F17.200 Nicotine dependence, unspecified, uncomplicated; D64.9 Anemia, unspecified; R06.03 Acute respiratory distress; Z91.19 Patient's noncompliance with other medical treatment and regimen; Z86.73 Personal history of transient ischemic attack (TIA), and cerebral infarction without residual deficits; Z82.49 Family history of ischemic heart disease and other diseases of the circulatory system; Z87.11 Personal history of peptic ulcer disease; Z79.899 Other long term (current) drug therapy; Z79.82 Long term (current) use of aspirin; Z95.5 Presence of coronary angioplasty implant and graft
CPT/HCPCS: 36415; 71045; 80048; 80061; 80076; 82140; 82550; 82553; 83880; 84100; 84484; 85025; 85610; 85730; 87040; 93005; 93010; 93306; 96374; G0378; A9270-GY; J0360; J1644; J1940; J7030

== ENCOUNTER 2018-09-24 08:19 | Day surgery (SDC) | payer MEDICAID ==
[~2018-09-24 08:19] MED LIST changes: +ANCEF/STERILE WATER 2 GM/20 ML 2 GM/20 ML SYRINGE IV NR
[2018-09-24 09:30] LABS: Basophils % (Auto) 0.7 % (0.0-1.8); Eosinophils # (Auto) 0.4 K/mm3 (0.0-0.4); Eosinophils % (Auto) 7.7 % (0.0-4.3); Hematocrit 37.1 % (35.5-45.6); Hemoglobin 12.2 gm/dl (11.8-15.2); Lymphocytes # (Auto) 1.3 K/mm3 (1.2-5.4); Lymphocytes % (Auto) 21.5 % (13.4-35.0); Mean Corpuscular HGB Conc 33 % (32-34); Mean Corpuscular Volume 90 fl (84-94); Monocytes # (Auto) 0.6 K/mm3 (0.0-0.8); Platelet Count 127 K/mm3 (140-440); Red Blood Count 4.12 M/mm3 (3.65-5.03); Red Cell Distribution Width 16.2 % (13.2-15.2)
[2018-09-24 09:42] LABS: INR 0.92 (0.87-1.13); Partial Thromboplastin Time 27.1 Sec. (24.2-36.6)
[2018-09-24 09:43] LABS: Calcium 10.8 mg/dL (8.4-10.2)
[2018-09-24] MEDS ORDERED: XYLOCAINE 2% INFILTRATI ONE (10:11)
[2018-09-24] MEDS ORDERED: HEPARIN 10,000 UNITS/10 ML ONE (10:11)
[2018-09-24] MEDS ORDERED: HEPARIN/NS 5000 UNIT/500ML(CATH LAB) 1,000 ML IR ONE (10:11)
[2018-09-24] MEDS ORDERED: ANCEF/STERILE WATER 2 GM/20 ML 2 GM/20 ML SYRINGE IV ONE (10:12)
[2018-09-24] MEDS ORDERED: NACL 0.9% 500 ML 500 ML ONE (10:12)
[2018-09-24] MEDS: SUBLIMAZE ONE ×3 (10:40→11:09)
[2018-09-24] MEDS: VERSED ONE ×3 (10:40→11:09)
--- NOTE | 2018-09-24 12:20 | Operative Report ---
Operative Report Operative Report: Operative note: Date: 09/24/2018 Preoperative diagnosis: Lower extremity ischemia with claudication Postoperative diagnosis: Same. Operation: Right lower extremity angiogram. Ultrasound-guided left common femoral access. Surgeon: Betty Boucher. Asst.: None Anesthesia: Local with moderate sedation EBL: Minimal Findings: Completely occluded superficial femoral artery and popliteal artery on the right side from takeoff to below knee popliteal. Indications: 58-year-old male with end-stage renal disease and previous intervention for his bilateral lower extremity, developed short distance claudication. He was discussed risks, benefits and alternatives of right leg angiogram and chose to proceed and signed informed consent. Operative details: Patient was brought to the Supervisor Tower and placed in supine position in his bilateral groins were prepped and draped in sterile fashion. Timeout was performed. Left common femoral artery was accessed under continuous ultrasound guidance using micropuncture technique. Micropuncture sheath was exchanged to 5 Icelandic access sheath over a Bentson wire. Omni Flush catheter was positioned in the distal aorta and aortoiliac gauge gram was performed showing patent common iliac and external iliac arteries. Using a lighted bandage were it was advanced to profunda artery followed by Omni Flush catheter was positioned in the right common femoral artery. Right leg angiogram with runoff was performed. That showed complete occlusion of SFA from the takeoff to below knee popliteal/TPT trunk arteries. I attempted to get the occlusion using lighted bandage were with vertebral catheter as well as V18 wire with Trailblaser. Those attempts were unsuccessful. Excess site was sealed using 6 Icelandic Angio-Seal. Patient will be brought to attempt a digital axis. He tolerated the procedure well. Was transferred to PACU in stable condition.
--- NOTE | 2018-09-24 12:24 | Short Stay Summary ---
Short Stay Documentation Date of service: 09/24/18 - History H&P: obtained from office - Allergies and Medications Current Medications: Allergies No Known Allergies Allergy (Verified 09/09/13 08:50) Home Medications Medication Instructions Recorded Confirmed Last Taken Type B Complex 11/Folic/C/Biot/Zinc 1 each PO DAILY #30 tablet 12/24/16 09/24/18 09/23/18 Rx [Dialyvite with Zinc Tablet] 1 Carvedilol [Coreg] 3.125 mg PO BID #60 tablet 12/24/16 09/24/18 09/23/18 Rx 3.125mg Losartan [Cozaar] 50 mg PO QDAY #30 tablet 12/24/16 09/24/18 09/23/18 Rx 50mg Pantoprazole [Protonix TAB] 40 mg PO BID #60 tablet 12/24/16 09/24/18 09/23/18 Rx 40mg Aspirin 81 mg PO DAILY 12/14/17 09/24/18 09/23/18 History 81mg Megavite [facility] Years Caplet 1 tab PO DAILY 12/14/17 09/24/18 09/23/18 History 1 AtorvaSTATin [Lipitor] 40 mg PO QHS #30 tablet 07/18/18 09/24/18 09/23/18 Rx 40mg Active Medications Cefazolin Sodium (Ancef/Sterile Water 2 Gm/20 Ml) 2 gm in 20 mls @ 80 mls/hr IV PREOP NR; Protocol Stop: 09/24/18 23:59 Last Admin: 09/24/18 10:46 Dose: 20 mls Documented by: Sodium Chloride (Nacl 0.9% 1000 Ml) 1,000 mls @ 42 mls/hr IV DIRECT DARIANA - Brief post op/procedure progress note Date of procedure: 09/24/18 Pre-op diagnosis: right leg ischemia with claudication Post-op diagnosis: same Procedure: right leg angiogram. Us giuided left common femoral access. Anesthesia: MAC Findings: occlusion of SFA, popliteal arteries Surgeon: MATTEO WALKER Estimated blood loss: minimal Condition: stable - Disposition Condition at discharge: Fair Disposition: DC-01 TO HOME OR SELFCARE Short Stay Discharge Plan Diet: renal Wound: keep clean and dry Follow up with: MARY CARMEN CESPEDES MD [Primary Care Provider] - 7 Days MATTEO WALKER DO [Staff Physician] - 7 Days
[2018-09-24 14:46] VITALS: BP 157/92
== END 2018-09-24 15:30 | disposition home or self-care (01) ==
LOC: CATH 08:19
PROVIDERS: ATTEND Surgery Vascular Surgery
DX: I70.221 Atherosclerosis of native arteries of extremities with rest pain, right leg (principal); I13.2 Hypertensive heart and chronic kidney disease with heart failure and with stage 5 chronic kidney disease, or end stage renal disease; N18.6 End stage renal disease; I50.9 Heart failure, unspecified; I25.10 Atherosclerotic heart disease of native coronary artery without angina pectoris; I25.2 Old myocardial infarction; Z99.2 Dependence on renal dialysis; Z98.890 Other specified postprocedural states; Z95.9 Presence of cardiac and vascular implant and graft, unspecified; Z79.899 Other long term (current) drug therapy; Z79.01 Long term (current) use of anticoagulants; Z87.891 Personal history of nicotine dependence; Z86.73 Personal history of transient ischemic attack (TIA), and cerebral infarction without residual deficits; Z82.49 Family history of ischemic heart disease and other diseases of the circulatory system
CPT/HCPCS: 36246; 36415; 75710; 76937; 80048; 85025; 85610; 85730; 99156; 99157; C1725; C1760; C1769; C1887; J0690; J1644; J2250; J3010; J7040; Q9967

== ENCOUNTER 2019-05-16 15:49 | Outpatient (CLI) | payer MEDICAID ==
--- NOTE | 2019-05-17 09:19 | PET Report ---
PET/CT WHOLE BODY HISTORY: C80.1. Staging of metastatic squamous cell carcinoma, malignant primary neoplasm unspecifie d TECHNIQUE: The patient's fasting blood glucose was 72. The patient weighed 130 lbs. The patient wa s injected with 12.8 mCi of FDG in the right hand at 1616 hours and imaging was started at 1701 hours . The patient was imaged from the vertex of the skull through the feet. All CT scans at this [facility] are performed using CT dose reduction for ALARA by means of automated exposure control. Images were reviewed on a workstation. COMPARISON: No comparison PET CT FINDINGS: BRAIN: [Physiologic FDG uptake] NECK: [Physiologic FDG uptake] CHEST WALL: [There is an approximate 7.9 x 6.3 cm mass with epicenter overlying the anterior right s econd rib. This mass extends anteriorly to the pectoral muscles and posteriorly into the lungs/pleura . There is bony destruction of the anterior first and second ribs. Max SUV of this mass measures 19.3 .] An approximate 3.5 cm mass within the right posterior duct just deltoid muscle or rotator cuff dem onstrates a max SUV of 4.0. MEDIASTINUM: [Physiologic FDG uptake]. Moderate to severe cardiomegaly is noted. LUNGS: [Physiologic FDG uptake]. Other than the right anterior chest wall mass described above, the lungs are clear. No suspicious pulmonary nodule or mass. 4 mm subpleural nodule in the lateral left u pper lobe is noted and may represent focal scarring. Follow-up is recommended. This nodule is hypomet abolic. HEPATOBILIARY: [Physiologic FDG uptake]. Liver SUV measures 2.7. PANCREAS: [Physiologic FDG uptake SPLEEN: [Physiologic FDG uptake] KIDNEYS/BLADDER: [Physiologic FDG uptake]. Numerous small renal cysts and a few scattered renal ston es are noted in both kidneys. No obstructive uropathy. ADRENAL GLANDS: [Approximate 2.5 cm left adrenal mass demonstrates a max SUV of 8.0. The right adren al gland is within normal limits.] GI/MESENTERY: [Physiologic FDG uptake] PELVIC VISCERA: [Physiologic FDG uptake] LYMPH NODES: [A 1.8 cm right axillary lymph node demonstrates a max SUV of 5.3. A 9 mm left supracla vicular lymph node demonstrates a max SUV of 4.0. No additional maribeth uptake is confidently identifie d. Uptake in the iliac regions on both sides of the pelvis appears to be secondary to bowel activity and not maribeth disease.] OSSEOUS STRUCTURES: [Bony destruction of the right first and second ribs as described. No additional bony involvement is identified.] LOWER EXTREMITIES: Physiologic FDG uptake. ADDITIONAL FINDINGS: [A 1 cm subcutaneous nodule in the anterior abdominal wall just above the umbil icus demonstrates a max SUV of 6.9]. An approximate 1.5 cm nodule in the right posterior paraspinal m uscle near the level of L5 demonstrates a max SUV of 11.5. IMPRESSION: Positive PET CT with multiple metastatic lesions as described above. The dominant mass appears to ar ise from the right upper lobe or right anterior chest wall as outlined above. Metastatic lesions iden tified include a right axillary lymph node, a left subclavicular lymph node, left adrenal gland, righ t posterior shoulder muscles and subcutaneous tissues of the anterior abdominal wall. Signer Name: Raj Gil Jr, MD Signed: 05/17/2019 9:14 AM Workstation Name: [id number]
== END 2019-05-16 15:50 | disposition home or self-care (01) ==
LOC: PET 15:49
PROVIDERS: ATTEND Internal Medicine Hematology & Oncology
DX: C80.1 Malignant (primary) neoplasm, unspecified (principal); C79.9 Secondary malignant neoplasm of unspecified site
CPT/HCPCS: 78816; 82962; A9552

== ENCOUNTER 2019-06-12 08:34 | Day surgery (SDC) | payer MEDICAID ==
--- NOTE | 2019-06-11 16:30 | Short Stay Summary ---
Short Stay Documentation Date of service: 06/12/19 - History H&P: obtained from office - Allergies and Medications Current Medications: Allergies No Known Allergies Allergy (Verified 09/09/13 08:50) Home Medications Medication Instructions Recorded Confirmed Last Taken Type B Complex 11/Folic/C/Biot/Zinc 1 each PO DAILY #30 tablet 12/24/16 03/25/19 03/18/19 Rx [Dialyvite with Zinc Tablet] 1 tab Losartan [Cozaar] 50 mg PO QDAY #30 tablet 12/24/16 03/25/19 03/18/19 Rx 50 mg Aspirin 81 mg PO DAILY 12/14/17 03/25/19 06/09/19 History Clopidogrel Bisulfate [Plavix] 75 mg PO DAILY #30 tablet 09/24/18 03/25/19 06/03/19 Rx Cinacalcet HCl [Sensipar] 30 mg PO DAILY 03/25/19 03/25/19 03/24/19 History 30 mg Ferric Citrate (Nf) [Auryxia] 3 tab PO TID 03/25/19 03/25/19 03/24/19 History 3 tab amLODIPine [Norvasc] 10 mg PO DAILY 03/25/19 03/25/19 03/22/19 History carvediloL [Coreg] 6.25 mg PO BID 03/25/19 03/25/19 03/18/19 History 3.125mg Courtney-Beatriz Rx Tablet 1 tab PO DAILY 06/10/19 06/10/19 Unknown History - Physical exam General appearance: no acute distress HEENT: Atraumatic Lungs: Normal air movement Neurological: Normal speech - Brief post op/procedure progress note Date of procedure: 06/12/19 (dictation:[id number]) Pre-op diagnosis: metastatis right lung cancer Post-op diagnosis: same Procedure: US guided port placement IVF 250cc EBL <10cc Anesthesia: MAC Findings: difficulty passing wire via subclavian vein. Also experienced some difficulty via IJ, but ultimately, with a thinner wire, it passed. Surgeon: CHARLEE ESTES Estimated blood loss: minimal Pathology: none Condition: stable - Disposition Condition at discharge: Stable Disposition: DC-01 TO HOME OR SELFCARE Short Stay Discharge Plan Activity: advance as tolerated Diet: regular Wound: open to air, keep clean and dry Special Instructions: no heavy lifting Additional Instructions: Post Operative Instructions Activity: no heavy lifting for next 1 week. May shower tomorrow. Pat dry the wound or wounds. Keep incision sites clean and dry After surgery, start with a light diet. Consider having a liquid diet first. If you do well, you can advance to a regular diet as you feel comfortable. Apply an ice pack to the wound or wounds for 10-20 minutes at a time. Do this at least 4-5 times a day. You can do it more if he would like. Alternate the use of ibuprofen and Tylenol for the first 2 days. I want you to take these on a scheduled basis. Take 600 mg of ibuprofen every 6 hours. Take 500 mg of Tylenol every 6 hours. You should alternate these 2 medicines. In other words, beginning with the ibuprofen. After 3 hours, take the Tylenol. Keep alternating the 2 drugs every 3 hours. Do this on a scheduled basis for the first 2 days. After that, you can take them as needed. It is very important that you use the prescription pain medicine only for very severe pain. Do not take the prescription medicine before you try using the ibuprofen and Tylenol. We will call you in a couple of days to see how youre doing. If you have any questions or concerns, always feel free to call the clinic at any time. Follow up with: MARY CARMEN CESPEDES MD [Primary Care Provider] - 7 Days
[~2019-06-12 08:34] MED LIST changes: +ACETAMINOPHEN 500 MG TAB PO ONE; -ANCEF/STERILE WATER 2 GM/20 ML 2 GM/20 ML SYRINGE IV NR; +CELECOXIB 200 MG CAP PO NR; +GABAPENTIN 300 MG CAP PO NR; +HEPARIN 1,000 UNIT/1 ML VIAL IV ONE; +HEPARIN 10,000 UNITS/10 ML VIAL IV ONE; -NACL 0.9% 1000 ML 1,000 ML IV SCH; +SODIUM CHLORIDE 0.9% 1000 ML 1,000 ML IV SCH; +SODIUM CHLORIDE 0.9% 250 ML IVPB IV ONE; +ceFAZolin/Water 2 GM/20 ML 2 GM/20 ML SYRINGE IV NR
[2019-06-12] MEDS ORDERED: LIDOCAINE (1%) 10 MG/1 ML VIAL 20 ML MDV ONE (09:39)
[2019-06-12] MEDS ORDERED: BUPIVACAINE-EPINEPHRINE/PF 0.5%-1:200,000 (30 ML) VIAL INFILTRATI ONE ×3 (09:40→11:07)
[2019-06-12] MEDS ORDERED: HEPARIN 10,000 UNITS/10 ML VIAL ONE (09:40)
[2019-06-12] MEDS ORDERED: SODIUM CHLORIDE 0.9% 250ML 250 ML ONE (09:40)
[2019-06-12] MEDS ORDERED: fentaNYL 100 MCG/2 ML INJ IV PRN (09:49)
--- NOTE | 2019-06-12 09:49 | Anesthesia Day of Surgery ---
Anesthesia Day of Surgery - Day of Surgery Patient Examined: Yes Patient H&P Reviewed: Yes Patient is NPO: Yes Beta Blockers: Yes
--- NOTE | 2019-06-12 09:49 | Anesthesia Consultation ---
Anesthesia Consult and Med Hx Date of service: 06/12/19 - Airway Anesthetic Teeth Evaluation: Poor (denies loose teeth) ROM Head & Neck: Adequate Mental/Hyoid Distance: Adequate Mallampati Class: Class III Intubation Access Assessment: Possibly Difficult - Pulmonary Exam CTA: Yes - Cardiac Exam Cardiac Exam: RRR - Pre-Operative Health Status ASA Pre-Surgery Classification: ASA4 Proposed Anesthetic Plan: MAC - Pulmonary Hx Smoking: Yes (quit 5 yrs ago) Hx Respiratory Symptoms: No COPD: No - Cardiovascular System Hx Hypertension: Yes (took amlodipine this morning) Hx Coronary Artery Disease: Yes Hx Heart Attack/AMI: Yes (1981) Hx Angina: No Hx Cardia Arrhythmia: No (preop EKG reviewed) Hx Peripheral Vascular Disease: Yes - Central Nervous System CVA: Yes (2012; right leg weakness) - Gastrointestinal Hx Ulcer: Yes (PUD) - Endocrine Hx End Stage Renal Disease: Yes (last HD 06/11/19) Hx Liver Disease: No Hx Insulin Dependent Diabetes: No Hx Non-Insulin Dependent Diabetes: No Hx Thyroid Disease: No - Hematic Hx Anemia: Yes - Other Systems Hx Cancer: Yes (lung Ca) Hx Obesity: No - Additional Comments Anesthesia Medical History Comments: No hx anesthetic complications. Will give home dose coreg in preop.
[2019-06-12] MEDS ORDERED: SODIUM CHLORIDE P/F VIAL 10 ML 10 ML ONE (09:55)
[2019-06-12] MEDS ORDERED: carvediloL 6.25 MG TAB PO ONE (10:00)
[2019-06-12 10:07] LABS: Basophils % (Auto) 0.8 % (0.0-1.8); Eosinophils # (Auto) 0.4 K/mm3 (0.0-0.4); Eosinophils % (Auto) 6.1 % (0.0-4.3); Hematocrit 29.2 % (35.5-45.6); Hemoglobin 9.6 gm/dl (11.8-15.2); Lymphocytes # (Auto) 0.7 K/mm3 (1.2-5.4); Lymphocytes % (Auto) 12.4 % (13.4-35.0); Mean Corpuscular HGB Conc 33 % (32-34); Mean Corpuscular Volume 87 fl (84-94); Monocytes # (Auto) 0.9 K/mm3 (0.0-0.8); Monocytes % (Auto) 15.1 % (0.0-7.3); Platelet Count 159 K/mm3 (140-440); Red Blood Count 3.36 M/mm3 (3.65-5.03); Red Cell Distribution Width 18.2 % (13.2-15.2)
[2019-06-12 10:17] LABS: Calcium 9.9 mg/dL (8.4-10.2)
[2019-06-12 10:20] LABS: INR 1.18 (0.87-1.13)
[2019-06-12 10:21] LABS: Partial Thromboplastin Time 39.4 Sec. (24.2-36.6)
[2019-06-12] MEDS ORDERED: fentaNYL 100 MCG/2 ML INJ ONE (10:30)
[2019-06-12] MEDS ORDERED: PROPOFOL 200 MG/20 ML VIAL IV ONE (10:31)
[2019-06-12] MEDS ORDERED: KETAMINE/STERILE WATER 50 MG/ML SYRINGE ONE (10:31)
[2019-06-12] MEDS ORDERED: MIDAZOLAM 2 MG/2 ML INJ ONE (10:42)
[2019-06-12] MEDS ORDERED: LIDOCAINE (1%) 10 MG/1 ML VIAL 20 ML MDV INFILTRATI ONE ×2 (11:07)
[2019-06-12] MEDS ORDERED: HEPARIN 1,000 UNIT/1 ML VIAL IV ONE (11:10)
[2019-06-12] MEDS ORDERED: SODIUM CHLORIDE 0.9% 250 ML IVPB IV ONE (11:10)
[2019-06-12] MEDS ORDERED: HEPARIN 10,000 UNITS/10 ML VIAL IV ONE (11:45)
[2019-06-12] MEDS ORDERED: ACETAMINOPHEN 500 MG TAB ONE (12:01)
--- NOTE | 2019-06-12 12:29 | Fluoroscopy Report ---
FLUOROSCOPY CENTRAL VENOUS DEVICE PLACEMENT HISTORY: Right lung cancer, left [id number] placement FINDINGS: 4.1 minutes of fluoroscopy time was provided by radiology during Hjulqt-k-[id number] placement by the surgeon. 2 AP views of the chest are presented. A left IJ Gypnou-f-Hjra has been inserted which terminates at the cavoatrial junction. There is no evidence for pneumothorax. Mild cardiomegaly, mild pulmonary venous congestion and right apical mass are noted. IMPRESSION: Good placement of the left Zdhyhe-m-Fbun. No pneumothorax. Signer Name: Raj Gil Jr, MD Signed: 06/12/2019 12:24 PM Workstation Name: [id number]
[2019-06-12 13:23] VITALS: BP 114/72
--- NOTE | 2019-06-12 13:37 | Operative Report ---
PREOPERATIVE DIAGNOSIS: Metastatic right lung cancer. POSTOPERATIVE DIAGNOSIS: Metastatic right lung cancer. PROCEDURES: 1. Insertion of tunneled centrally inserted central venous access device with subcutaneous port. 2. Ultrasound guidance for vascular access. ATTENDING PHYSICIAN: Cass Parrish MD ANESTHESIA: Local MAC. ESTIMATED BLOOD LOSS: Less than 10 mL. FLUIDS: 250 mL. FINDINGS: Suggestion of possible partial obstruction near the internal jugular vein, subclavian vein junction. IMPLANTS: Smart Port. COMPLICATIONS: None. DISPOSITION: Stable, transferred to Recovery Room. INDICATIONS: This is a 59-year-old male who was recently diagnosed with metastatic right lung cancer. He was assessed to be need for chemotherapy. He was referred to General Surgery for port placement. Procedure, risks, benefits were explained to the patient. Risks included but were not limited to infection, bleeding, pain, injury to surrounding structures, possible need for further procedures in the future. The patient understood and consented. OPERATIVE NOTE: The patient was brought to the operating room and placed on the table in supine position. After adequate sedation was established, the patient was prepped and draped in usual sterile fashion. SCDs were in place. Antibiotics have been given. A towel roll was underneath the spine. Pressure points were padded. Timeout was called. The patient was placed in Trendelenburg position. Prior to start of the case, I had examined the internal jugular vein and subclavian veins on the left side. The right side was not utilized as he had a large mass that was visible and near the clavicular head. We elected to use the subclavian vein, both target looked very good. The subclavian vein would decrease our chance of infection. Therefore, we utilized that. Under ultrasound guidance, the skin and subcutaneous tissue were anesthetized as well as the planned pocket site. Small incision was made. Introducer needle was inserted under ultrasound guidance. I accessed the left subclavian vein on the first attempt. We had good aspiration of blood. Guidewire was passed. However, near the subclavian vein and internal jugular vein junction, the wire would not pass forward. Multiple attempts were made. A second heavier wire was used, nothing worked. We tried turning the patient's head in various positions and pushing the shoulder down. We even tried removing the roll under him. We had no success. Therefore, the guidewire and needle were removed. Pressure was held for at least 5 minutes. I turned my attention to the left internal jugular vein. Same procedure was done. Under ultrasound guidance, the skin and subcutaneous tissue were anesthetized. Small incision was made. Introducer needle was inserted into the vein. Under ultrasound guidance, we had good aspiration of blood. Needle tip was seen in the center of the vessel. Initially, we started with a heavier guidewire, but that too got hung up at the same point. I tried one more time with the guidewire that comes with the package and this time, we were able to get it to pass. It went down towards the right side of the heart. There was no ectopy. We secured the wire. The pocket site was determined and anesthetized. Transverse incision was made. Subcutaneous pocket was created. We did not have very much subcutaneous to work with as the patient was very thin and so I did as much as I could, but the port was closed to the skin. There was a thin layer of subcutaneous tissue between the port and the skin. The port fit easily. We then passed the tunneler up to the neck. The tract site had been anesthetized. Dilator and sheath were passed on the wire. It passed easily. Wire was mobile during the entire time. I checked the position with fluoroscopy just to make sure it looked good. We then took out the dilator and wire and put the catheter in. We adjusted the length, trimmed the catheter at 30 cm, and attached it to the port. We had good aspiration and flushing and then we injected the concentrated heparinized solution 5 mL. We checked the path of the catheter. There were no kinks or twists. Everything looked very good under fluoroscopy. No obvious complications were seen. The patient was changed from Trendelenburg to reverse Trendelenburg. Additional local was injected around the catheter tract and the port site. Two layers of 3-0 Vicryl interrupted sutures were placed as the patient was very thin and there was a little bit of tenting of the skin. I was worried that there would be excess tension on the incision, which may cause dehiscence of the incision. Therefore, 2 layers with a 3-0 Vicryl were used and then the skin was closed with 4-0 Monocryl subcuticular stitches. I closed the other two sites with a single 4-0 Monocryl subcuticular stitch. Skin was cleaned and dried. Dermabond was placed. The patient tolerated the procedure well. There were no complications. All counts were correct at the end of the case. Chest x-ray official read is pending at the time of this dictation. I reviewed the chest x-ray. I saw no obvious complications. JOB# [id number] AMANDA/DANE FLYNN
--- NOTE | 2019-06-12 13:50 | Post Anesthesia Evaluation ---
- Post Anesthesia Evaluation Patient Participated: Yes Airway Patent: Yes Stable Respiratory Function: Yes Nausea/Vomiting: No Temp > 96.8F: Yes Pain Manageable: Yes Adequeate Hydration: Yes Anesthesia Complications: No Block Receding Appropriately: Not Applicable Patient on Ventilator: No
== END 2019-06-12 14:10 | disposition home or self-care (01) ==
LOC: OR 08:34
PROVIDERS: ATTEND Surgery
DX: C34.91 Malignant neoplasm of unspecified part of right bronchus or lung (principal); I13.2 Hypertensive heart and chronic kidney disease with heart failure and with stage 5 chronic kidney disease, or end stage renal disease; I50.9 Heart failure, unspecified; N18.6 End stage renal disease; I73.9 Peripheral vascular disease, unspecified; I25.10 Atherosclerotic heart disease of native coronary artery without angina pectoris; Z95.9 Presence of cardiac and vascular implant and graft, unspecified; Z79.899 Other long term (current) drug therapy; Z79.82 Long term (current) use of aspirin; Z87.891 Personal history of nicotine dependence; Z99.2 Dependence on renal dialysis; Z98.890 Other specified postprocedural states; Z86.73 Personal history of transient ischemic attack (TIA), and cerebral infarction without residual deficits; Z82.49 Family history of ischemic heart disease and other diseases of the circulatory system
CPT/HCPCS: 36415; 36561; 77001; 80048; 85025; 85610; 85730; 93005; 93010; C1788; J0690; J1644; J2250; J2704; J3010; J7030; J7050

== ENCOUNTER 2019-07-17 11:10 | Observation (INO) | payer MEDICAID ==
--- NOTE | 2019-07-17 12:36 | Emergency Department Report ---
- General Chief complaint: Weakness Stated complaint: WEAKNESS Time Seen by Provider: 07/17/19 11:58 Source: patient, EMS Mode of arrival: Stretcher Limitations: No Limitations - History of Present Illness Initial comments: 59-year-old male with a past medical history of right-sided lung cancer diagnosed 1.5 months ago, end-stage renal disease on dialysis Monday, , and Monday, hypertension, CVA with residual left-sided weakness, CHF with last EF old record of about 25% presents to the hospital with complaints of generalized weakness that started after receiving radiation therapy for chemotherapy yesterday. Patient had his first round of radiation yesterday has not yet initiated chemotherapy. After radiation therapy patient developed generalized weakness. Patient also complains ongoing right-sided chest pain inside of known cancer. He also complains of a global headache since yesterday. At baseline patient ambulates with a walker. He reports good by mouth intake without nausea, vomiting, diarrhea, or fever. On average he urinates once a day. Patient has been compliant with dialysis and last received dialysis yesterday. PMD: Dr. Lambert Garbage Collector: Dr Perez. after speaking to [facility] with to renal pt now states he last had dialysis monday as stated by nephrology. Severity scale (0 -10): 8 - Related Data Home Medications Medication Instructions Recorded Confirmed Last Taken Aspirin 81 mg PO DAILY 12/14/17 06/12/19 1 Week Ago ~06/05/19 Cinacalcet HCl [Sensipar] 30 mg PO DAILY 03/25/19 06/12/19 06/11/19 Ferric Citrate (Nf) [Auryxia] 3 tab PO TID 03/25/19 06/12/19 06/11/19 amLODIPine 10 mg PO DAILY 03/25/19 06/12/19 06/12/19 05:00 carvediloL [Coreg] 6.25 mg PO BID 03/25/19 06/12/19 1 Week Ago ~06/05/19 Courtney-Beatriz Rx Tablet 1 tab PO DAILY 06/10/19 06/12/19 06/11/19 HYDROcodone/APAP 7.5-325 [[place] 1 each PO Q6HR PRN 06/12/19 06/12/19 06/12/19 05:00 7.5-325 mg TAB] Previous Rx's Medication Instructions Recorded Last Taken Type B Complex 11/Folic/C/Biot/Zinc 1 each PO DAILY #30 tablet 12/24/16 06/11/19 Rx [Dialyvite with Zinc Tablet] Losartan [Cozaar] 50 mg PO QDAY #30 tablet 12/24/16 06/11/19 Rx Clopidogrel Bisulfate [Plavix] 75 mg PO DAILY #30 tablet 09/24/18 1 Week Ago Rx ~06/05/19 Allergies Allergy/AdvReac Type Severity Reaction Status Date / Time No Known Allergies Allergy Verified 09/09/13 08:50 ED Review of Systems ROS: Stated complaint: WEAKNESS Other details as noted in HPI Comment: All other systems reviewed and negative ED Past Medical Hx - Past Medical History Previous Medical History?: Yes Hx Hypertension: Yes (took amlodipine this morning) Hx CVA: Yes Hx Heart Attack/AMI: Yes (1981) Hx Congestive Heart Failure: Yes Hx Diabetes: No Hx Liver Disease: No Hx Renal Disease: Yes Hx Asthma: No Hx COPD: No Additional medical history: Dialysis T, TH, SAT - Surgical History Past Surgical History?: Yes Hx Coronary Stent: Yes - Social History Smoking Status: Former Smoker Substance Use Type: None - Medications Home Medications: Home Medications Medication Instructions Recorded Confirmed Last Taken Type B Complex 11/Folic/C/Biot/Zinc 1 each PO DAILY #30 tablet 12/24/16 06/12/19 06/11/19 Rx [Dialyvite with Zinc Tablet] Losartan [Cozaar] 50 mg PO QDAY #30 tablet 12/24/16 06/12/19 06/11/19 Rx Aspirin 81 mg PO DAILY 12/14/17 06/12/19 1 Week Ago History ~06/05/19 Clopidogrel Bisulfate [Plavix] 75 mg PO DAILY #30 tablet 09/24/18 06/12/19 1 Week Ago Rx ~06/05/19 Cinacalcet HCl [Sensipar] 30 mg PO DAILY 03/25/19 06/12/19 06/11/19 History Ferric Citrate (Nf) [Auryxia] 3 tab PO TID 03/25/19 06/12/19 06/11/19 History amLODIPine 10 mg PO DAILY 03/25/19 06/12/19 06/12/19 05:00 History carvediloL [Coreg] 6.25 mg PO BID 03/25/19 06/12/19 1 Week Ago History ~06/05/19 Courtney-Beatriz Rx Tablet 1 tab PO DAILY 06/10/19 06/12/19 06/11/19 History HYDROcodone/APAP 7.5-325 [[place] 1 each PO Q6HR PRN 06/12/19 06/12/19 06/12/19 05:00 History 7.5-325 mg TAB] ED Physical Exam - General Limitations: No Limitations - Other Other exam information: General: No limitations, patient is alert in no acute distress Head exam: Atraumatic, normocephalic Eyes exam: Normal appearance, pupils equal reactive to light, extraocular movements intact ENT: dry mucous membrane Neck exam: Normal inspection, full range of motion, no meningismus nontender Respiratory exam: Clear to auscultation bilateral, no wheezes, rales, crackles. right upper anterior chest wall mass marked with an x (placed for radiation treatment) Cardiovascular: Normal rate and rhythm, + murmur Abdomen: Soft, nondistended, and nontender, with normal bowel sounds, no rebound, or guarding Extremity: Full range of motion normal inspection no deformity, left arm av dialysis access. Back: Normal Inspection, full range of motion, no tenderness Neurologic: Alert, oriented x3, cranial nerves intact, 4/5 left arm strength, 5/5 right arm. b/l legs 2/5 strength Psychiatric: normal affect, normal mood Skin: Warm, dry, intact ED Course Vital Signs 07/17/19 12:14 Temperature 97.4 F L Pulse Rate 68 Respiratory 16 Rate Blood Pressure 161/77 [Right] O2 Sat by Pulse 94 Oximetry - Reevaluation(s) Reevaluation #1: 07/17/19 14:49 pt with mild hypoglycemia and has not eaten today. provided food and juice - Consultations Consultation #1: 07/17/19 14:39 case d/w DR Lambert, requests hospitalist admission because he is not available. 07/17/19 14:42 case d/w Raquel with nephrology. as per her record pt has not had dialysis since sat (and therefore missed yesterday contray to pt history) ED Medical Decision Making - Lab Data Result diagrams: 07/17/19 12:44 07/17/19 12:44 Lab Results 07/17/19 07/17/19 07/17/19 Range/Units 12:44 12:44 12:44 WBC 7.3 (4.5-11.0) K/mm3 RBC 4.14 (3.65-5.03) M/mm3 Hgb 11.4 L (11.8-15.2) gm/dl Hct 35.3 L (35.5-45.6) % MCV 85 (84-94) fl MCH 28 (28-32) pg MCHC 32 (32-34) % RDW 20.3 H (13.2-15.2) % Plt Count 194 (140-440) K/mm3 Lymph % (Auto) 13.4 (13.4-35.0) % [place] % (Auto) 15.9 H (0.0-7.3) % Eos % (Auto) 3.8 (0.0-4.3) % Baso % (Auto) 0.6 (0.0-1.8) % Lymph # 1.0 L (1.2-5.4) K/mm3 [place] # 1.2 H (0.0-0.8) K/mm3 Eos # 0.3 (0.0-0.4) K/mm3 Baso # 0.0 (0.0-0.1) K/mm3 Seg Neutrophils % 66.3 (40.0-70.0) % Seg Neutrophils # 4.9 (1.8-7.7) K/mm3 Sodium 134 L (137-145) mmol/L Potassium 5.2 H (3.6-5.0) mmol/L Chloride 93.5 L (98-107) mmol/L Carbon Dioxide 15 L (22-30) mmol/L Anion Gap 31 mmol/L BUN 88 H (9-20) mg/dL Creatinine 14.2 H (0.8-1.5) mg/dL Estimated GFR 4 ml/min BUN/Creatinine Ratio 6 % Glucose 54 L (75-100) mg/dL Uric Acid (3.5-7.6) mg/dL Calcium 10.4 H (8.4-10.2) mg/dL Phosphorus (2.5-4.5) mg/dL Magnesium (1.7-2.3) mg/dL Total Bilirubin 0.30 (0.1-1.2) mg/dL AST 36 (5-40) units/L ALT 22 (7-56) units/L Alkaline Phosphatase 87 (35-129) units/L Total Protein 8.0 (6.3-8.2) g/dL Albumin 3.7 L (3.9-5) g/dL Albumin/Globulin Ratio 0.9 % TSH 0.606 (0.270-4.200) mlU/mL Free T4 1.26 (0.76-1.46) ng/dL 07/17/19 07/17/19 07/17/19 Range/Units 12:44 12:44 12:44 WBC (4.5-11.0) K/mm3 RBC (3.65-5.03) M/mm3 Hgb (11.8-15.2) gm/dl Hct (35.5-45.6) % MCV (84-94) fl MCH (28-32) pg MCHC (32-34) % RDW (13.2-15.2) % Plt Count (140-440) K/mm3 Lymph % (Auto) (13.4-35.0) % [place] % (Auto) (0.0-7.3) % Eos % (Auto) (0.0-4.3) % Baso % (Auto) (0.0-1.8) % Lymph # (1.2-5.4) K/mm3 [place] # (0.0-0.8) K/mm3 Eos # (0.0-0.4) K/mm3 Baso # (0.0-0.1) K/mm3 Seg Neutrophils % (40.0-70.0) % Seg Neutrophils # (1.8-7.7) K/mm3 Sodium (137-145) mmol/L Potassium (3.6-5.0) mmol/L Chloride (98-107) mmol/L Carbon Dioxide (22-30) mmol/L Anion Gap mmol/L BUN (9-20) mg/dL Creatinine (0.8-1.5) mg/dL Estimated GFR ml/min BUN/Creatinine Ratio % Glucose (75-100) mg/dL Uric Acid 9.4 H (3.5-7.6) mg/dL Calcium (8.4-10.2) mg/dL Phosphorus 9.20 H (2.5-4.5) mg/dL Magnesium 2.90 H (1.7-2.3) mg/dL Total Bilirubin (0.1-1.2) mg/dL AST (5-40) units/L ALT (7-56) units/L Alkaline Phosphatase (35-129) units/L Total Protein (6.3-8.2) g/dL Albumin (3.9-5) g/dL Albumin/Globulin Ratio % TSH (0.270-4.200) mlU/mL Free T4 (0.76-1.46) ng/dL - EKG Data -: EKG Interpreted by Hi EKG shows normal: sinus rhythm, ST-T waves (lvh) Rate: normal (67) - Radiology Data Radiology results: report reviewed CHEST 1 VIEW INDICATION: right cp, lung cancer. COMPARISON: 06/12/2019 FINDINGS: SUPPORT DEVICES: Hfpcts-n-[id number] catheters tip in the superior vena cava HEART / MEDIASTINUM: No significant abnormality. LUNGS / PLEURA: Again identified is the mass right upper lobe which is smaller than on previous exam. No pneumothorax. ADDITIONAL FINDINGS: IMPRESSION: 1. Decreased size right upper lobe mass as c ompared to previous exam CT BRAIN: WITHOUT CONTRAST INDICATION / CLINICAL INFORMATION: headache, gen weakness, lung ca. COMPARISON: None available. FINDINGS: BRAIN/INTRACRANIAL STRUCTURES: Unenhanced CT images of the brain demonstrate no evidence of acute intracranial abnormality. Ventricles and sulci are prominent in size, consistent with pronounced diffuse cerebral atrophy. Extensive chronic white matter hypoattenuation is present. There is no CT evidence of acute large vessel territory ischemic injury, hemorrhage, or mass. There are no abnormal extra- axial fluid collections. Atherosclerotic vascular calcifications are present in the distal internal carotid arteries and vertebral arteries. EXTRACRANIAL STRUCTURES: Unremarkable. IMPRESSION: No acute abnormality. Prominent cerebral atrophy and extensive chronic white matter hypoattenuation. - Medical Decision Making weakness likely due to radiation and missed dialysis electrolyte abnormalities noted elevated uric acid pt to be admitted to the hospitalist for treatment - Differential Diagnosis dehydration, tumor lysis, anemia, infection, electrolyte abnl Critical Care Time: No Critical care attestation.: If time is entered above; I have spent that time in minutes in the direct care of this critically ill patient, excluding procedure time. ED Disposition Clinical Impression: ESRD needing dialysis, Missed dialysis, Lung cancer, Status post radiation therapy Disposition: DC- OP ADMIT IP TO THIS HOSP Is pt being admited?: Yes Condition: Stable Time of Disposition: 14:53 (Dr Bello/hosp)
--- NOTE | 2019-07-17 13:14 | XRay Report ---
CHEST 1 VIEW INDICATION: right cp, lung cancer. COMPARISON: 06/12/2019 FINDINGS: SUPPORT DEVICES: [id number]-[id number] catheters tip in the superior vena cava HEART / MEDIASTINUM: No significant abnormality. LUNGS / PLEURA: Again identified is the mass right upper lobe which is smaller than on previous exam. No pneumothorax. ADDITIONAL FINDINGS: IMPRESSION: 1. Decreased size right upper lobe mass as compared to previous exam Signer Name: Dick Navarro MD Signed: 07/17/2019 1:09 PM Workstation Name: [id number]
[2019-07-17 13:19] LABS: Basophils % (Auto) 0.6 % (0.0-1.8); Eosinophils # (Auto) 0.3 K/mm3 (0.0-0.4); Eosinophils % (Auto) 3.8 % (0.0-4.3); Hematocrit 35.3 % (35.5-45.6); Hemoglobin 11.4 gm/dl (11.8-15.2); Lymphocytes % (Auto) 13.4 % (13.4-35.0); Mean Corpuscular HGB Conc 32 % (32-34); Mean Corpuscular Volume 85 fl (84-94); Monocytes # (Auto) 1.2 K/mm3 (0.0-0.8); Monocytes % (Auto) 15.9 % (0.0-7.3); Platelet Count 194 K/mm3 (140-440); Red Blood Count 4.14 M/mm3 (3.65-5.03)
[2019-07-17 13:20] LABS: Red Cell Distribution Width 20.3 % (13.2-15.2)
[2019-07-17 13:35] LABS: Albumin 3.7 g/dL (3.9-5); Calcium 10.4 mg/dL (8.4-10.2)
[2019-07-17] MEDS ORDERED: DEXTROSE 50% IN WATER (25GM) 50 ML SYRINGE IV ONE (13:41)
[2019-07-17 13:45] LABS: Free T4 (Free Thyroxine) 1.26 ng/dL (0.76-1.46)
--- NOTE | 2019-07-17 14:18 | Cat Scan Report ---
CT BRAIN: WITHOUT CONTRAST INDICATION / CLINICAL INFORMATION: headache, gen weakness, lung ca. COMPARISON: None available. FINDINGS: BRAIN/INTRACRANIAL STRUCTURES: Unenhanced CT images of the brain demonstrate no evidence of acute int racranial abnormality. Ventricles and sulci are prominent in size, consistent with pronounced diffuse cerebral atrophy. Exte nsive chronic white matter hypoattenuation is present. There is no CT evidence of acute large vessel territory ischemic injury, hemorrhage, or mass. There a re no abnormal extra-axial fluid collections. Atherosclerotic vascular calcifications are present in the distal internal carotid arteries and verte bral arteries. EXTRACRANIAL STRUCTURES: Unremarkable. IMPRESSION: No acute abnormality. Prominent cerebral atrophy and extensive chronic white matter hypoattenuation. All CT scans at this location are performed using dose reduction to ALARA by means of automated expos ure control. Signer Name: Lion Gomez MD Signed: 07/17/2019 2:14 PM Workstation Name: [id number]
--- NOTE | 2019-07-17 15:02 | Consultation ---
History of Present Illness - History of Present Illness Thank you for the consultation ! My assessment and plan are as follows: End-stage renal disease: Patient will continue with hemodialysis treatment as tolerated, monitor dialysis related labs, Will order for hemodialysis treatment today ultrafiltration possibly 1 kg Cancer: Patient is currently being followed by Dr. Adrian and has had radiation treatment done Overall his health has been declining as patient admits, he does not have any significant volume overload Hypertension and volume: Monitor for now, dialysis nurse to ultrafiltrate as tolerated goal systolic blood pressure less than 140, Anemia and end-stage renal disease: Monitor and follow erythropoietin as re quired Secondary hyperparathyroidism: Monitor phosphorus and PTH periodically and adjust binders as needed Diet and nutrition: Fluid restriction 1200 mL per day, high-protein preferably 1.5 g per KG body weight All dialysis related issues have been discussed with the patient Patient does exhibit good understanding of the renal related issues Patient has been adequately counseled and educated regarding all the renal related issues and renal care plan was discussed with patient at length Patient was advised to make an appointment upon discharge, for follow-up in the office Renal prognosis remains guarded at this time We'll continue to follow and make recommendation from renal standpoint If you have any questions please feel free to contact me at [phone] Naresh Monroy M.D. [facility], [address] [place] [phone] person asking the consultation: Emergency room physician, who called our office patient established with our group and does need hemodialysis treatment today History of presenting illness 59-year-old -[place] male is currently dialysis dependent has been admitted here after missing his dialysis treatment, mildly hyperkalemic acidotic Patient recently started treatment for his cancer and is currently being followed by hematology oncology, He is also receiving radiation treatment, He does feel weak he has also lost weight over time He has no complaints of any fever or chills nausea vomiting He does have a working fistula Patient of been diagnosed with right-sided lung cancer approximately 6 weeks ago he is currently in hemodialysis on Monday and started his first round of radiation therapy yesterday but has not started chemotherapy yet is currently being followed by hematology oncology Past medical history significant for End-stage renal disease Anemia and end-stage renal disease Congestive heart failure Cardiomyopathy ejection fraction 25% Lung cancer CVA Current allergies: None Home medication, present medication: Reviewed Social history, family history: Reviewed from the chart Review of system: Recently started radiation treatment for his cancer being followed by oncology Missed dialysis treatment No fever or chills Physical examination: General: No acute distress HEENT: Oral mucosa moist no icterus, no facial swelling Neck: Supple no thyromegaly no lymphadenopathy no JVD Chest: Clear to auscultation no crackles rales or wheezes Heart: Regular rate and rhythm S1-S2 heard no S3-S4 Abdomen: Soft nontender no organomegaly no masses palpable no renal bruit no suprapubic masses no CVA tenderness Dermatology: No petechial skin rashes noted Extremity: Less than 1+ peripheral edema, dry skin Musculoskeletal: No joint effusion noted in knee and ankle area Psych: No evidence of agitation and aggression noted Neurological: Alert awake follows commands no tremors no myoclonus Back: No CVA tenderness Medications and Allergies Allergies Allergy/AdvReac Type Severity Reaction Status Date / Time No Known Allergies Allergy Verified 09/09/13 08:50 Home Medications Medication Instructions Recorded Confirmed Last Taken Type B Complex 11/Folic/C/Biot/Zinc 1 each PO DAILY #30 tablet 12/24/16 06/12/19 06/11/19 Rx [Dialyvite with Zinc Tablet] Losartan [Cozaar] 50 mg PO QDAY #30 tablet 12/24/16 06/12/19 06/11/19 Rx Aspirin 81 mg PO DAILY 12/14/17 06/12/19 1 Week Ago History ~06/05/19 Clopidogrel Bisulfate [Plavix] 75 mg PO DAILY #30 tablet 09/24/18 06/12/19 1 Week Ago Rx ~06/05/19 Cinacalcet HCl [Sensipar] 30 mg PO DAILY 03/25/19 06/12/19 06/11/19 History Ferric Citrate (Nf) [Auryxia] 3 tab PO TID 03/25/19 06/12/19 06/11/19 History amLODIPine 10 mg PO DAILY 03/25/19 06/12/19 06/12/19 05:00 History carvediloL [Coreg] 6.25 mg PO BID 03/25/19 06/12/19 1 Week Ago History ~06/05/19 Courtney-Beatriz Rx Tablet 1 tab PO DAILY 06/10/19 06/12/19 06/11/19 History HYDROcodone/APAP 7.5-325 [[place] 1 each PO Q6HR PRN 06/12/19 06/12/19 06/12/19 05:00 History 7.5-325 mg TAB] Exam - Vital Signs Vital signs: Vital Signs Temp Pulse Resp BP Pulse Ox 97.4 F L 68 16 161/77 94 07/17/19 12:14 07/17/19 12:14 07/17/19 12:14 07/17/19 12:14 07/17/19 12:14 Results - Lab Results 07/18/19 05:08 07/18/19 05:08 Most recent lab results Calcium 10.4 mg/dL (8.4-10.2) H 07/17/19 12:44 Phosphorus 9.20 mg/dL (2.5-4.5) H 07/17/19 12:44 Magnesium 2.90 mg/dL (1.7-2.3) H 07/17/19 12:44
--- NOTE | 2019-07-17 15:18 | History and Physical Report ---
History of Present Illness Date of examination: 07/17/19 Date of admission: 07/17/19 Chief complaint: weakness History of present illness: 59-year-old male with a past medical history of right-sided stage 4 squamous cell lung cancer diagnosed 1.5 months ago, end-stage renal disease on dialysis Monday, , and Monday, hypertension, CVA with residual right-sided weakness, CHF with last EF old record of about 25% presents to the hospital with complaints of generalized weakness that started after receiving radiation therapy yesterday. Patient had his first round of radiation yesterday has not yet initiated chemotherapy, follows with Dr Adrian. After radiation therapy patient developed generalized weakness. Patient also complains ongoing right-sided chest pain related to his known h/o cancer. At baseline patient ambulates with a walker. He reports good po intake without nausea, vomiting, diarrhea, or fever. Patient has been compliant with dialysis and last received dialysis yesterday. PMD: Dr. Lambert Parts Clerk: Dr Perez. Patient is being admitted for observation for further evaluation and mx. Past History Past Medical History: dialysis, ESRD, heart failure, stroke, other (stage 4 lung cancer) Social history: smoking (now quited). denies: alcohol abuse, prescription drug abuse, IV drug use Family history: hypertension, stroke Medications and Allergies Allergies Allergy/AdvReac Type Severity Reaction Status Date / Time No Known Allergies Allergy Verified 09/09/13 08:50 Home Medications Medication Instructions Recorded Confirmed Last Taken Type B Complex 11/Folic/C/Biot/Zinc 1 each PO DAILY #30 tablet 12/24/16 07/18/19 06/11/19 Rx [Dialyvite with Zinc Tablet] Losartan [Cozaar] 50 mg PO QDAY #30 tablet 12/24/16 07/18/19 06/11/19 Rx Aspirin 81 mg PO DAILY 12/14/17 07/18/19 1 Week Ago History ~06/05/19 Clopidogrel Bisulfate [Plavix] 75 mg PO DAILY #30 tablet 09/24/18 07/18/19 1 Week Ago Rx ~06/05/19 Cinacalcet HCl [Sensipar] 30 mg PO DAILY 03/25/19 07/18/19 06/11/19 History Ferric Citrate (Nf) [Auryxia] 3 tab PO TID 03/25/19 07/18/19 06/11/19 History amLODIPine 10 mg PO DAILY 03/25/19 07/18/19 06/12/19 05:00 History carvediloL [Coreg] 6.25 mg PO BID 03/25/19 07/18/19 1 Week Ago History ~06/05/19 Courtney-Beatriz Rx Tablet 1 tab PO DAILY 06/10/19 07/18/19 06/11/19 History HYDROcodone/APAP 7.5-325 [[place] 1 each PO Q6HR PRN 06/12/19 07/18/19 06/12/19 05:00 History 7.5-325 mg TAB] Review of Systems Constitutional: weight loss, fatigue, weakness, lethargy, chronic pain, no fever, no chills, no anorexia Ears, nose, mouth and throat: no ear discharge, no decreased hearing, no nasal congestion, no sinus pain, no bleeding gums, no voice changes Cardiovascular: shortness of breath, no orthopnea, no palpitations, no lightheadedness Respiratory: cough, shortness of breath Gastrointestinal: no abdominal pain, no nausea, no vomiting, no diarrhea, no h ematochezia Genitourinary Male: no flank pain Rectal: no pain Musculoskeletal: no neck stiffness, no neck pain Integumentary: no rash, no pruritis, no redness Neurological: weakness (right sided weakness), no change in speech, no change in mentation Psychiatric: no memory loss Endocrine: no cold intolerance, no heat intolerance, no polyphagia, no polydipsia Hematologic/Lymphatic: no easy bruising, no easy bleeding Allergic/Immunologic: no urticaria, no wheezing Exam - Constitutional Vitals: Temp Pulse Resp BP Pulse Ox 97.4 F L 66 13 148/78 100 07/17/19 12:14 07/17/19 14:31 07/17/19 14:31 07/17/19 14:31 07/17/19 14:31 General appearance: Present: cachectic, disheveled - EENT Eyes: Present: PERRL ENT: hearing intact, clear oral mucosa - Neck Neck: Present: supple, normal ROM - Respiratory Respiratory effort: normal Respiratory: bilateral: CTA - Cardiovascular Heart Sounds: Present: S1 & S2. Absent: rub, click - Extremities Extremities: pulses symmetrical, No edema Peripheral Pulses: within normal limits - Abdominal General gastrointestinal: Present: soft, non-tender, non-distended, normal bowel sounds - Integumentary Integumentary: Present: clear, warm, dry - Musculoskeletal Musculoskeletal: right sided weakness - Psychiatric Psychiatric: appropriate mood/affect, intact judgment & insight - Neurologic Neurologic: CNII-XII intact, moves all extremities Results - Labs CBC & Chem 7: 07/18/19 05:08 07/18/19 05:08 Labs: Abnormal lab results 07/17/19 07/17/19 07/17/19 Range/Units 12:44 12:44 12:44 Hgb 11.4 L (11.8-15.2) gm/dl Hct 35.3 L (35.5-45.6) % RDW 20.3 H (13.2-15.2) % [place] % (Auto) 15.9 H (0.0-7.3) % Lymph # 1.0 L (1.2-5.4) K/mm3 [place] # 1.2 H (0.0-0.8) K/mm3 Sodium 134 L (137-145) mmol/L Potassium 5.2 H (3.6-5.0) mmol/L Chloride 93.5 L (98-107) mmol/L Carbon Dioxide 15 L (22-30) mmol/L BUN 88 H (9-20) mg/dL Creatinine 14.2 H (0.8-1.5) mg/dL Glucose 54 L (75-100) mg/dL Uric Acid 9.4 H (3.5-7.6) mg/dL Calcium 10.4 H (8.4-10.2) mg/dL Phosphorus (2.5-4.5) mg/dL Magnesium (1.7-2.3) mg/dL Albumin 3.7 L (3.9-5) g/dL 07/17/19 07/17/19 Range/Units 12:44 12:44 Hgb (11.8-15.2) gm/dl Hct (35.5-45.6) % RDW (13.2-15.2) % [place] % (Auto) (0.0-7.3) % Lymph # (1.2-5.4) K/mm3 [place] # (0.0-0.8) K/mm3 Sodium (137-145) mmol/L Potassium (3.6-5.0) mmol/L Chloride (98-107) mmol/L Carbon Dioxide (22-30) mmol/L BUN (9-20) mg/dL Creatinine (0.8-1.5) mg/dL Glucose (75-100) mg/dL Uric Acid (3.5-7.6) mg/dL Calcium (8.4-10.2) mg/dL Phosphorus 9.20 H (2.5-4.5) mg/dL Magnesium 2.90 H (1.7-2.3) mg/dL Albumin (3.9-5) g/dL - Imaging and Cardiology Chest x-ray: report reviewed (RUL mass) CT Scan - head: report reviewed (no acute abnormality, chronic white mater mead es) Assessment and Plan ESRD on HD - consult renal for HD, monitor electrolytes Lung cancer stage 4 on radiation - cont f/u with Dr Adrian outpt Generalized weakness with physical debility, related to underlying malignancy - will consult PT eval HTN, uncontrolled - - will resume home meds Anemia of CD, monitor h/h Congestive heart failure, compensated Cardiomyopathy ejection fraction 25% - volume control with HD h/o CVA, supportive care Hyperkalemia, mild from ESRD - monitor electrolytes, should adjust with HD Severe PCM - Renal diet, nutrition consult - SCD for DVT Px
[2019-07-17] MEDS ORDERED: HYDROcodone/ACETAMINOPHEN 7.5-325MG TAB PO PRN (15:20)
[2019-07-17] MEDS ORDERED: NON-FORMULARY EACH (Aspirin 81 MG) PO SCH (15:30)
[2019-07-17] MEDS ORDERED: CLOPIDOGREL 75 MG TAB ONE (16:14)
[2019-07-17] MEDS ORDERED: ASPIRIN 81 MG TAB CHEW ONE (16:30)
[2019-07-17] MEDS ORDERED: SODIUM CHLORIDE 0.9% 100 ML IV PRN (16:30)
[2019-07-17] MEDS: CLOPIDOGREL 75 MG TAB PO SCH (16:30)
[2019-07-17] MEDS: ASPIRIN 81 MG TAB CHEW PO SCH (16:31)
[2019-07-17 19:17] LABS: Hepatitis B Surface Antigen Non-Reactive (Negative); Hepatitis C Virus Antibody Non-Reactive (NonReactive)
[2019-07-17] MEDS ORDERED: FERRIC CITRATE PO SCH (20:00)
[2019-07-18] MEDS: carvediloL 3.125 MG TAB PO SCH ×2 (00:54→09:17)
[2019-07-18 07:08] LABS: Hematocrit 33.6 % (35.5-45.6); Mean Corpuscular HGB Conc 33 % (32-34); Mean Corpuscular Volume 85 fl (84-94); Platelet Count 178 K/mm3 (140-440); Red Blood Count 3.98 M/mm3 (3.65-5.03); Red Cell Distribution Width 19.9 % (13.2-15.2)
[2019-07-18 07:34] LABS: Calcium 10.1 mg/dL (8.4-10.2)
[2019-07-18 09:08] LABS: Total Cells Counted 100
[2019-07-18 09:09] LABS: Anisocytosis 1+; Basophils % (Manual) 0 % (0.0-1.8); Hypochromasia 1+; Target Cells 1+
[2019-07-18 09:10] LABS: Platelet Estimate Consistent w Auto
[2019-07-18] MEDS: CLOPIDOGREL 75 MG TAB PO SCH (09:16)
[2019-07-18] MEDS: ASPIRIN 81 MG TAB CHEW PO SCH (09:17)
--- NOTE | 2019-07-18 09:50 | Progress Note ---
Subjective Interval history: Patient was seen today for follow-up on multiple renal related issues Events of this hospitalization were noted Interdisciplinary notes were also reviewed Vitals intake output medications were reviewed Past medical history: Reviewed Family, social history: Reviewed Allergies: Reviewed Physical examination General: No acute distress Vitals: Reviewed HEENT: Oral mucosa moist no icterus Neck: Supple no thyromegaly nodular mass or JVD Chest: Clear to auscultation anteriorly Heart: Regular rate and rhythm S1-S2 heard no S3-S4 Abdomen: Soft nontender no suprapubic masses no organomegaly Extremity: Dry skin less than 1+ edema Psych: No evidence of any agitation and aggression noted Derm: No petechial rash Assessment and plan: End-stage renal disease patient did receive his hemodialysis treatment yesterday he will continue with hemodialysis treatment now on Monday and Monday schedule Matured after missing dialysis treatment cancer being followed by oncologist also getting radiation treatment His labs appear to be satisfactory his fistula has been working well Hyperkalemia, acidosis has resolved All renal related issues were discussed with the patient, patient does exhibit good understanding, lab results were also discussed with patient in simple Kinyarwanda Prognosis: Guarded We'll continue to follow and make recommendation from renal standpoint Objective - Vital Signs Vital signs: Vital Signs - 12hr 07/17/19 07/18/19 07/18/19 22:56 00:54 04:48 Temperature 98.1 F 98.4 F Pulse Rate 69 66 74 Respiratory 20 20 Rate Blood Pressure 164/85 152/89 154/82 O2 Sat by Pulse 97 94 Oximetry - Lab 07/18/19 05:08 07/18/19 05:08 Most recent lab results Calcium 10.1 mg/dL (8.4-10.2) 07/18/19 05:08 Phosphorus 9.20 mg/dL (2.5-4.5) H 07/17/19 12:44 Magnesium 2.90 mg/dL (1.7-2.3) H 07/17/19 12:44 Medications & Allergies - Medications Allergies/Adverse Reactions: Allergies No Known Allergies Allergy (Verified 09/09/13 08:50) Home Medications: Home Medications Medication Instructions Recorded Confirmed Last Taken Type B Complex 11/Folic/C/Biot/Zinc 1 each PO DAILY #30 tablet 12/24/16 06/12/19 06/11/19 Rx [Dialyvite with Zinc Tablet] Losartan [Cozaar] 50 mg PO QDAY #30 tablet 12/24/16 06/12/19 06/11/19 Rx Aspirin 81 mg PO DAILY 12/14/17 06/12/19 1 Week Ago History ~06/05/19 Clopidogrel Bisulfate [Plavix] 75 mg PO DAILY #30 tablet 09/24/18 06/12/19 1 Week Ago Rx ~06/05/19 Cinacalcet HCl [Sensipar] 30 mg PO DAILY 03/25/19 06/12/19 06/11/19 History Ferric Citrate (Nf) [Auryxia] 3 tab PO TID 03/25/19 06/12/19 06/11/19 History amLODIPine 10 mg PO DAILY 03/25/19 06/12/19 06/12/19 05:00 History carvediloL [Coreg] 6.25 mg PO BID 03/25/19 06/12/19 1 Week Ago History ~06/05/19 [facility] Rx Tablet 1 tab PO DAILY 06/10/19 06/12/19 06/11/19 History HYDROcodone/APAP 7.5-325 [[place] 1 each PO Q6HR PRN 06/12/19 06/12/19 06/12/19 05:00 History 7.5-325 mg TAB] Active Medications: Generic Name Dose Route Start Last Admin Trade Name Freq PRN Reason Stop Dose Admin Acetaminophen/Hydrocodone Bitart 1 each 07/17/19 15:20 [place] 7.5/325 PO Q6HR PRN PAIN Amlodipine Besylate 10 mg 07/18/19 10:00 07/18/19 09:17 Amlodipine PO 10 mg DAILY DARIANA Administration Aspirin 81 mg 07/17/19 17:00 07/18/19 09:17 Baby Aspirin PO 81 mg QDAY DARIANA Administration Carvedilol 6.25 mg 07/17/19 22:00 07/18/19 09:17 Coreg PO 6.25 mg BID DARIANA Administration Cinacalcet 30 mg 07/18/19 10:00 07/18/19 09:16 Sensipar PO 30 mg DAILY DARIANA Administration Clopidogrel Bisulfate 75 mg 07/17/19 16:00 07/18/19 09:16 Plavix PO 75 mg DAILY DARIANA Administration Sodium Chloride 100 mls @ 999 mls/hr 07/17/19 16:30 Nacl 0.9% IV RAMON PRN Hypotension Miscellaneous Medication 3 tab 07/17/19 20:00 Ferric Citrate (Nf) PO TID DARIANA Multivit/Ca Carb/B Cmplx/FA/Prenat 1 cap 07/18/19 10:00 07/18/19 09:17 Renal Caps PO 1 cap QDAY DARIANA Administration
[2019-07-18] MEDS ORDERED: SODIUM CHLORIDE 0.9% 100 ML IV PRN (09:52)
[2019-07-18] MEDS ORDERED: FOLIC ACID/VIT B COMP W-C 1 MG (RENAL CAPS) PO SCH (10:00)
[2019-07-18] MEDS ORDERED: amLODIPine 10 MG TAB PO SCH (10:00)
[2019-07-18] MEDS ORDERED: NON-FORMULARY EACH (B Complex 11/Folic/C/Biot/Zinc [Dialyvite With Zinc Tablet] 1 EACH) PO SCH (10:00)
[2019-07-18] MEDS ORDERED: NON-FORMULARY EACH (Rena-Vite Rx Tablet 1 TAB) PO SCH (10:00)
[2019-07-18] MEDS ORDERED: CINACALCET 30 MG TAB PO SCH (10:00)
--- NOTE | 2019-07-18 13:38 | Discharge Summary ---
Providers - Providers Date of Admission: 07/17/19 14:58 Date of discharge: 07/18/19 Attending physician: MAITE PALM 07/17/19 15:25 Physical Therapy Evaluation and Treat [CONS] Routine Comment: Reason For Exam: placement 07/18/19 11:46 Consult to Dietitian/Nutrition [CONS] Routine Physician Instructions: Reason For Exam: Reason for Consult: Malnutrition 07/18/19 11:51 Consult to Physician [CONS] Routine Comment: Consulting Provider: SHERLEY ADRIAN Physician Instructions: Reason For Exam: stage 4 lung cancer Primary care physician: MARY CARMEN CESPEDES Hospitalization Condition: Stable Pertinent studies: CT head CXR Hospital course: Discharge diagnosis: /ESRD on HD - consult renal for HD, monitor electrolytes /Lung cancer stage 4 on radiation - cont f/u with Dr Adrian outpt /Dyspnea, likely from underlying lung cancer - assessed for home o2 requirement /Generalized weakness with physical debility, related to underlying malignancy - consulted PT - recommended DINA but patient refused as that will delay his cancer treatment - he wanted to go home with HH /HTN, uncontrolled - resumed home meds /Anemia of CD, monitor h/h /Congestive heart failure, compensated - Cardiomyopathy ejection fraction 25% - volume control with HD /h/o CVA, supportive care /Hyperkalemia, mild from ESRD - monitor electrolytes, should adjust with HD /Severe PCM - Renal diet, nutrition consult - SCD for DVT Px Disposition: [id number] HOME UNDER HOME HL[facility] Time spent for discharge: 34 minutes Core Measure Documentation - Palliative Care Palliative Care/ Comfort Measures: Not Applicable - Core Measures Any of the following diagnoses?: history only Exam - Constitutional Vitals: Temp Pulse Resp BP Pulse Ox 98.2 F 63 18 133/75 96 07/18/19 11:56 07/18/19 11:56 07/18/19 11:56 07/18/19 11:56 07/18/19 11:56 General appearance: Present: cachectic - EENT Eyes: Present: PERRL ENT: hearing intact, clear oral mucosa - Neck Neck: Present: supple, normal ROM - Respiratory Respiratory effort: normal Respiratory: bilateral: CTA - Cardiovascular Heart Sounds: Present: S1 & S2. Absent: rub, click - Extremities Extremities: pulses symmetrical, No edema Peripheral Pulses: within normal limits - Abdominal General gastrointestinal: Present: soft, non-tender, non-distended, normal bowel sounds - Integumentary Integumentary: Present: clear, warm, dry - Musculoskeletal Musculoskeletal: right sided weakness - Psychiatric Psychiatric: appropriate mood/affect, intact judgment & insight - Neurologic Neurologic: CNII-XII intact, moves all extremities Plan Activity: fall precautions Weight Bearing Status: Non-Weight Bearing Diet: renal (with supplements nephro BID) Special Instructions: restrict fluid intake to (1.2 L per day) Follow up with: PRIMARY CAREMD [Referring] - 3-5 Days SHERLEY ADRIAN MD [Staff Physician] - 7 Days Prescriptions: Pravastatin [Pravachol] 40 mg PO QHS #30 tablet HYDROcodone/APAP 7.5-325 [[place] 7.5-325 mg TAB] 1 each PO Q6HR PRN #10 PRN Reason: Pain Folic Acid/Vit B Comp W-C [Renal Caps] 1 cap PO QDAY #30 capsule
[2019-07-18 19:41] VITALS: BP 135/80
== END 2019-07-18 19:30 | disposition home health service (06) ==
LOC: ED 11:10 → 3A 14:58
PROVIDERS: ADMIT Internal Medicine; ATTEND Internal Medicine
DX: I13.2 Hypertensive heart and chronic kidney disease with heart failure and with stage 5 chronic kidney disease, or end stage renal disease (principal); I50.9 Heart failure, unspecified; N18.6 End stage renal disease; C34.90 Malignant neoplasm of unspecified part of unspecified bronchus or lung; D64.9 Anemia, unspecified; R53.1 Weakness; E87.5 Hyperkalemia; Z99.2 Dependence on renal dialysis; Z92.3 Personal history of irradiation; Z86.73 Personal history of transient ischemic attack (TIA), and cerebral infarction without residual deficits; Z87.891 Personal history of nicotine dependence; Z79.01 Long term (current) use of anticoagulants
CPT/HCPCS: 36415; 70450; 71045; 80048; 80053; 80074; 82962; 83735; 84100; 84439; 84443; 84550; 85007; 85025; 93005; 93010; 97162; 99284; G0378; J3246